=== PATIENT | male | born 1965 | race Caucasian/White ===

== ENCOUNTER → 2023-07-09 07:37 | Outpatient (REF) | payer BC, MEDICARE, SELFPAY ==
[2023-07-09 09:00] LABS: ALT (SGPT) 31 U/L (0-50); AST (SGOT) 33 U/L (17-59); Alkaline Phosphatase 77 U/L (38-126); Blood Urea Nitrogen 15 mg/dl (9-20); Calcium 9.8 mg/dl (8.4-10.2); Carbon Dioxide 31 mmol/L (22-30); Chloride 96 mmol/L (98-107); Glucose 177 mg/dl (70-99); Sodium 134 mmol/L (135-145); Total Bilirubin 0.8 mg/dl (0.2-1.3); Total Protein 6.3 g/dl (6.3-8.2); eGFR > 60.00
== END ==
LOC: REG 07:37
PROVIDERS: ATTENDING PHYSICIAN Internal Medicine Cardiovascular Disease
DX: R06.00 Dyspnea, unspecified (principal)
CPT/HCPCS: 36415; 80053

== ENCOUNTER → 2023-07-12 11:29 | Outpatient (REF) | payer BC, MEDICARE, SELFPAY | LOC: DHCBS MAIN 11:29 | PROVIDERS: ATTENDING PHYSICIAN Internal Medicine Cardiovascular Disease; FAMILY PHYSICIAN Internal Medicine | DX: I10 Essential (primary) hypertension (principal) | CPT/HCPCS: 93306 ==

== ENCOUNTER → 2023-08-01 10:51 | Outpatient (REF) | payer BC, SELFPAY | LOC: RAD 10:51 | PROVIDERS: ATTENDING PHYSICIAN Surgery Vascular Surgery; FAMILY PHYSICIAN Internal Medicine | DX: I73.9 Peripheral vascular disease, unspecified (principal) | CPT/HCPCS: 93922; 93925 ==

== ENCOUNTER → 2023-08-22 07:40 | Outpatient (REF) | payer BC, SELFPAY ==
[2023-08-22 09:35] LABS: ALT (SGPT) 40 U/L (0-50); AST (SGOT) 28 U/L (17-59); Albumin 4.8 g/dl (3.5-5.0); Alkaline Phosphatase 100 U/L (38-126); Blood Urea Nitrogen 15 mg/dl (9-20); Calcium 10.3 mg/dl (8.4-10.2); Carbon Dioxide 26 mmol/L (22-30); Chloride 100 mmol/L (98-107); Glucose 121 mg/dl (70-99); Potassium 4.3 mmol/L (3.5-5.1); Sodium 135 mmol/L (135-145); Total Bilirubin 0.5 mg/dl (0.2-1.3); Total Protein 7.2 g/dl (6.3-8.2); eGFR > 60.00
[2023-08-22 10:11] LABS: Microalbumin, Random Urine <0.6 mg/dl (0.6-1.7)
[2023-08-22 12:20] LABS: Glycohemoglobin (HgbA1c) 5.9 % (4.0-5.6)
== END ==
LOC: REG 07:40
PROVIDERS: ATTENDING PHYSICIAN Internal Medicine
DX: E11.65 Type 2 diabetes mellitus with hyperglycemia (principal)
CPT/HCPCS: 36415; 80053; 82043; 82570; 83036

== ENCOUNTER → 2023-09-16 08:22 | Outpatient (REF) | payer BC, SELFPAY ==
[2023-09-16 09:44] LABS: % Basophils 0.5 % (0-2); % Eosinophils 1.9 % (0-6); % Immature Granulocytes 1.9 % (0-0.5); % Lymphocytes 42.5 % (20.5-51.1); % Monocytes 9.2 % (1.7-9.3); Absolute Eosinophils 0.1 10^3/uL (0-0.7); Absolute Immature Granulocytes 0.1 10^3/uL (0-0.05); Absolute Lymphocytes 2.7 10^3/uL (1.2-3.4); Absolute Monocytes 0.6 10^3/uL (0.1-0.6); Absolute Neutrophils 2.8 10^3/uL (1.4-6.5); Hematocrit 35.2 % (39.0-52.0); Mean Corp Hgb Conc. 36.9 g/dL (33.0-37.0); Mean Corpuscular Hgb 34.1 pg (27.0-31.0); Mean Corpuscular Volume 92.4 fL (80.0-94.0); Mean Platelet Volume 9.2 fL (7.4-10.4); Nucleated Red Blood Cells % 0 % (-); Platelet Count 162 10^3/uL (130-400); Red Blood Cell Count 3.81 10^6/uL (4.70-6.10); Red Cell Dist. Width 13.9 % (11.5-14.5); White Blood Cell Count 6.4 10^3/uL (4.8-10.8)
[2023-09-16 10:11] LABS: C-Reactive Protein < 5.00 mg/L (0.0-10.00)
[2023-09-16 10:52] LABS: Erythrocyte Sed Rate 9 mm/hour (0-20)
== END ==
LOC: RAD 08:22
PROVIDERS: ATTENDING PHYSICIAN Specialist; FAMILY PHYSICIAN Internal Medicine
DX: Z96.652 Presence of left artificial knee joint (principal); M25.462 Effusion, left knee
CPT/HCPCS: 36415; 78315; 85025; 85652; 86140; A9503

== ENCOUNTER → 2024-01-13 08:00 | Outpatient (REF) | payer BC, SELFPAY | LOC: WOUND 08:00 | PROVIDERS: ATTENDING PHYSICIAN Surgery; FAMILY PHYSICIAN Internal Medicine | DX: L97.822 Non-pressure chronic ulcer of other part of left lower leg with fat layer exposed (principal); I87.2 Venous insufficiency (chronic) (peripheral); E11.65 Type 2 diabetes mellitus with hyperglycemia; M17.31 Unilateral post-traumatic osteoarthritis, right knee; M17.11 Unilateral primary osteoarthritis, right knee; Z96.652 Presence of left artificial knee joint; Z79.4 Long term (current) use of insulin | CPT/HCPCS: 11042; 99203 ==

== ENCOUNTER → 2024-01-20 09:22 | Outpatient (REF) | payer BC, SELFPAY | LOC: WOUND 09:22 | PROVIDERS: ATTENDING PHYSICIAN Surgery; FAMILY PHYSICIAN Internal Medicine | DX: L97.822 Non-pressure chronic ulcer of other part of left lower leg with fat layer exposed (principal); I87.2 Venous insufficiency (chronic) (peripheral); E11.65 Type 2 diabetes mellitus with hyperglycemia; M17.31 Unilateral post-traumatic osteoarthritis, right knee; M17.11 Unilateral primary osteoarthritis, right knee; Z96.652 Presence of left artificial knee joint; Z79.4 Long term (current) use of insulin | CPT/HCPCS: 29580; 99213 ==

== ENCOUNTER → 2024-01-27 11:07 | Outpatient (REF) | payer BC, SELFPAY | LOC: WOUND 11:07 | PROVIDERS: ATTENDING PHYSICIAN Surgery; FAMILY PHYSICIAN Internal Medicine | DX: L97.822 Non-pressure chronic ulcer of other part of left lower leg with fat layer exposed (principal); I87.2 Venous insufficiency (chronic) (peripheral); M17.31 Unilateral post-traumatic osteoarthritis, right knee; M17.11 Unilateral primary osteoarthritis, right knee; Z96.652 Presence of left artificial knee joint; Z79.4 Long term (current) use of insulin | CPT/HCPCS: 99212 ==

== ENCOUNTER 2024-02-25 08:44 | Emergency (ER) | payer BC, SELFPAY ==
[2024-02-25 08:53] VITALS: BP 147/72
[2024-02-25 08:55] VITALS: BP 134/55; BMI 45.1
[2024-02-25] MEDS: ADACEL 0.5 ML IM (09:43)
--- NOTE | 2024-02-25 10:16 | ED.GENMED ---
History of Present Illness
General
Chief Complaint: Skin Surface Trauma
Time Seen by Provider: 02/25/24 08:46
History of Present Illness
History of Present Illness:
58-year-old male presents the emergency department For evaluation of bilateral knee pain and a left lower leg laceration sustained after a fall, he was walking on his patio deck which is under construction when he fell through a board, states it was
approximately 18 inches off the ground. Did not strike his head. He is able to bear weight. 7 cm lack to the left lower leg
Past History
Past History
ED Past Medical History: HTN, IDDM and Other (head injury/TBI)
ED Past Surgical History: Orthopedic and Other (Right orbital plate for fx)
Social History
Tobacco: Non-smoker
Personal:
Living: with family
Employment: Employed
Review of Systems
Review of Systems
Allergies reviewed?: Yes
All Other Systems: ROS reviewed and negative except as documented in HPI and ROS
Phy Exam
Physical Exam
Physical Exam:
GEN: Well appearing, NAD, WDWN
HEENT: Oral mucosa moist, no scleral icterus
Cardiac: Regular rate
Lung: No respiratory distress, no tachypnea
MSK: Moderate swelling of bilateral knees with ecchymosis to the right lateral knee. There is a 7 cm linear laceration transversely across the anterior left lower leg with no tendon exposure
Skin: Good color, no pallor or jaundice, no rashes
Neuro: AO x3, moves all extremities freely
Psych: Calm, cooperative
Course
Orders/Labs/Results
Orders:
Orders
02/25/24 09:30
Tetanus/Diphth/Acelpertussis [Adacel] 0.5 ml IM .ONCE ONE
CR Knee- Right 4 Or More View* Urgent
Comment:
Reason For Exam: fall
CR Leg Tibia/fibula Left 2 Vw Urgent
Comment:
Reason For Exam: fall
02/25/24 10:15
Ketorolac [Toradol] 30 mg IM NOW STA
Vital Signs
Initial and Last Documented VS:
Initial Vital Signs
Temp Pulse BP Pulse Ox
99 F 90 147/72 99
02/25/24 08:53 02/25/24 08:53 02/25/24 08:53 02/25/24 08:53
Last Documented Vital Signs
Temp Pulse BP Pulse Ox
99 F 90 134/55 99
02/25/24 08:55 02/25/24 08:55 02/25/24 08:55 02/25/24 09:06
Procedures
Laceration Closure
Left Lower Leg:
Status of Wound: clean
Size of Wound in cm: 7
Description of Wound Edges: sharp
Preparation: cleaned with saline
Anesthesia: 1% Lidocaine with epi
Type of Closure: single layer closure
Skin Closure Material: other (2-0 silk x 7; 3-0 vicryl x 5)
Number of sutures: 12
MDM/Problems Addressed
MDM/Problems Addressed:
X-rays reviewed by radiology suspicious for fracture of the medial femoral condyle on the left. Patient is recommended to use knee immobilizer and follow-up as an outpatient with Ortho, weightbearing as tolerated
*Critical Care Note
Total Time (30-74mins, 75-104mins- exclusive of procedures): Not Applicable
ED Attending Note
-
Portions of this chart may have been created with voice recognition software.� Occasional wrong word or��sound alike� substitutions may have occurred due to the inherent limitations of voice recognition software.
Discharge Plan
Departure
Patient Disposition: Home (Routine Discharge)
Date of Disposition: 02/25/24
Time of Disposition: 10:16
Patient with high blood pressure during this ER visit?: No
Discharge Problem:
Contusion of knee, right, Laceration of left leg
Instructions: Wound Care (DC)
Prescriptions:
No Action
atorvastatin 40 MG tablet
40 mg PO DAILY
risperidone 4 MG tablet
4 mg PO BID
valsartan 80 MG tablet
80 mg PO DAILY
metformin 1,000 MG tablet
1,000 mg PO BID
divalproex 500 MG tablet extended release 24 hr
1,500 mg PO BID
duloxetine 30 MG capsule,delayed release(DR/EC)
30 mg PO DAILY
duloxetine 30 MG capsule,delayed release(DR/EC)
30 mg PO DAILY
Montelukast Sodium 10 MG Tablet
10 mg PO DAILY
meloxicam 15 MG tablet
15 mg PO DAILY AT 0700
Patient Comments:
for 30days
gabapentin 300 MG capsule
300 mg PO BID
naproxen 500 MG tablet
500 mg PO [id number] PRN (Reason: mod pain)
Referrals:
Arias Graham MD [Family Provider] -
Activity Restrictions/Additional Instructions:
Keep dry for 24 hours
Daily gentle rinsing with soap and water
Keep covered and change bandages daily
Suture removal in 14 days
Interventions
Interventions:
*Risk Screen - Suicide Last Done: 02/25/24 08:55
*General Assessment Last Done: 02/25/24 08:55
*Neglect/Abuse Screening Last Done: 02/25/24 08:55
ED- Fall Risk Assessment Last Done: 02/25/24 09:06
*ED COVID-19 Vaccine History Last Done: 02/25/24 08:55
*Nursing Disposition Last Done: 02/25/24 10:28
ED-Skin Assessment Last Done: 02/25/24 09:06
Discharge Date and Time
Discharge Date/Time: 02/25/24 10:29
Print Language: MALDIVIAN
[2024-02-25] MEDS: TORADOL 30 MG IM (10:25)
== END 2024-02-25 10:29 | disposition home or self-care (01) ==
LOC: EMR 08:44
PROVIDERS: EMERGENCY PHYSICIAN Emergency Medicine; FAMILY PHYSICIAN Internal Medicine
DX: S81.812A Laceration without foreign body, left lower leg, initial encounter (principal); S80.01XA Contusion of right knee, initial encounter; W19.XXXA Unspecified fall, initial encounter; Y93.01 Activity, walking, marching and hiking; Z23 Encounter for immunization; I10 Essential (primary) hypertension; E11.9 Type 2 diabetes mellitus without complications
CPT/HCPCS: 99283; 12002; 90471; 96372; 73564; 73590; 90715

== ENCOUNTER → 2024-02-25 10:32 | Outpatient (REF) | payer BC, SELFPAY | LOC: WOUND 10:32 | PROVIDERS: ATTENDING PHYSICIAN Surgery; FAMILY PHYSICIAN Internal Medicine | DX: I87.311 Chronic venous hypertension (idiopathic) with ulcer of right lower extremity (principal); E11.65 Type 2 diabetes mellitus with hyperglycemia; L97.212 Non-pressure chronic ulcer of right calf with fat layer exposed; I87.2 Venous insufficiency (chronic) (peripheral); Z79.4 Long term (current) use of insulin; M17.31 Unilateral post-traumatic osteoarthritis, right knee; Z96.652 Presence of left artificial knee joint | CPT/HCPCS: 29581; 99213 ==

== ENCOUNTER → 2024-02-28 14:24 | Outpatient (REF) | payer BC, SELFPAY | LOC: WOUND 14:24 | PROVIDERS: ATTENDING PHYSICIAN Surgery; FAMILY PHYSICIAN Internal Medicine | DX: I87.311 Chronic venous hypertension (idiopathic) with ulcer of right lower extremity (principal); L97.212 Non-pressure chronic ulcer of right calf with fat layer exposed; I87.2 Venous insufficiency (chronic) (peripheral); E11.65 Type 2 diabetes mellitus with hyperglycemia; M17.31 Unilateral post-traumatic osteoarthritis, right knee; M17.11 Unilateral primary osteoarthritis, right knee; Z96.652 Presence of left artificial knee joint; Z79.4 Long term (current) use of insulin | CPT/HCPCS: 29580 ==

== ENCOUNTER → 2024-03-02 14:12 | Outpatient (REF) | payer BC, MEDICARE, SELFPAY | LOC: WOUND 14:12 | PROVIDERS: ATTENDING PHYSICIAN Surgery | DX: I87.313 Chronic venous hypertension (idiopathic) with ulcer of bilateral lower extremity (principal); L97.212 Non-pressure chronic ulcer of right calf with fat layer exposed; L97.821 Non-pressure chronic ulcer of other part of left lower leg limited to breakdown of skin; E11.65 Type 2 diabetes mellitus with hyperglycemia; Z79.4 Long term (current) use of insulin; M17.31 Unilateral post-traumatic osteoarthritis, right knee; Z96.652 Presence of left artificial knee joint | CPT/HCPCS: 29580; 99213 ==

== ENCOUNTER → 2024-03-09 10:08 | Outpatient (REF) | payer BC, MEDICARE, SELFPAY | LOC: WOUND 10:08 | PROVIDERS: ATTENDING PHYSICIAN Surgery; FAMILY PHYSICIAN Internal Medicine | DX: I87.313 Chronic venous hypertension (idiopathic) with ulcer of bilateral lower extremity (principal); L97.212 Non-pressure chronic ulcer of right calf with fat layer exposed; L97.821 Non-pressure chronic ulcer of other part of left lower leg limited to breakdown of skin; I87.2 Venous insufficiency (chronic) (peripheral); E11.65 Type 2 diabetes mellitus with hyperglycemia; M17.31 Unilateral post-traumatic osteoarthritis, right knee; M17.11 Unilateral primary osteoarthritis, right knee; Z96.652 Presence of left artificial knee joint; Z79.4 Long term (current) use of insulin | CPT/HCPCS: 29580; 99213 ==

== ENCOUNTER → 2024-03-16 10:46 | Outpatient (REF) | payer BC, MEDICARE, SELFPAY | LOC: WOUND 10:46 | PROVIDERS: ATTENDING PHYSICIAN Surgery; FAMILY PHYSICIAN Internal Medicine | DX: I87.313 Chronic venous hypertension (idiopathic) with ulcer of bilateral lower extremity (principal); L97.212 Non-pressure chronic ulcer of right calf with fat layer exposed; L97.821 Non-pressure chronic ulcer of other part of left lower leg limited to breakdown of skin; I87.2 Venous insufficiency (chronic) (peripheral); M17.31 Unilateral post-traumatic osteoarthritis, right knee; M17.11 Unilateral primary osteoarthritis, right knee; Z96.652 Presence of left artificial knee joint; Z79.4 Long term (current) use of insulin; E11.65 Type 2 diabetes mellitus with hyperglycemia | CPT/HCPCS: 11042 ==

== ENCOUNTER 2024-03-18 12:54 | Emergency (ER) | payer BC, MEDICARE, SELFPAY ==
[2024-03-18 13:00] VITALS: BP 126/59
[2024-03-18 13:03] VITALS: BP 126/59
[2024-03-18 13:10] VITALS: BMI 43.3
[2024-03-18] MEDS: TYLENOL 1000 MG PO (13:14)
[2024-03-18 13:42] LABS: % Basophils 0.5 % (0-2); % Eosinophils 1.4 % (0-6); % Immature Granulocytes 0.8 % (0-0.5); % Lymphocytes 29.8 % (20.5-51.1); % Monocytes 7.9 % (1.7-9.3); % Neutrophils 59.6 % (42.2-75.2); Absolute Eosinophils 0.1 10^3/uL (0-0.7); Absolute Immature Granulocytes 0.1 10^3/uL (0-0.05); Absolute Lymphocytes 2.2 10^3/uL (1.2-3.4); Absolute Monocytes 0.6 10^3/uL (0.1-0.6); Absolute Neutrophils 4.4 10^3/uL (1.4-6.5); Hematocrit 35.2 % (39.0-52.0); Hemoglobin 12.9 g/dL (13.0-18.0); Mean Corp Hgb Conc. 36.6 g/dL (33.0-37.0); Mean Corpuscular Hgb 33.8 pg (27.0-31.0); Mean Corpuscular Volume 92.1 fL (80.0-94.0); Mean Platelet Volume 8.7 fL (7.4-10.4); Nucleated Red Blood Cells % 0 % (-); Platelet Count 204 10^3/uL (130-400); Red Blood Cell Count 3.82 10^6/uL (4.70-6.10); Red Cell Dist. Width 14.9 % (11.5-14.5); White Blood Cell Count 7.4 10^3/uL (4.8-10.8)
[2024-03-18 13:46] LABS: Urine Albumin Negative (Neg - Trace); Urine Bilirubin Negative (Negative); Urine Character Clear (Clear); Urine Color Yellow; Urine Glucose Negative (Negative); Urine Ketone Negative (Negative); Urine Leukocyte Negative (Negative); Urine Nitrite Negative (Negative); Urine Occult Blood Negative (Negative); Urine Urobilinogen Negative (Neg - 1+); Urine pH 6.5 (5.0-9.0)
[2024-03-18 13:54] LABS: Lactic Acid 1.6 mmol/L (0.7-2.0)
[2024-03-18 14:00] VITALS: BP 113/65
[2024-03-18 14:14] LABS: COVID-19 Antigen Negative (Negative)
[2024-03-18 15:21] LABS: ALT (SGPT) 31 U/L (0-50); AST (SGOT) 31 U/L (17-59); Alkaline Phosphatase 91 U/L (38-126); Blood Urea Nitrogen 14 mg/dl (9-20); Calcium 9.7 mg/dl (8.4-10.2); Carbon Dioxide 31 mmol/L (22-30); Chloride 94 mmol/L (98-107); Estimated Creatinine Clearance > 125 ml/min; Glucose 119 mg/dl (70-99); Potassium 4.8 mmol/L (3.5-5.1); Sodium 133 mmol/L (135-145); Total Bilirubin 0.5 mg/dl (0.2-1.3); Total Protein 6.3 g/dl (6.3-8.2); eGFR > 60.00
[2024-03-18 15:28] VITALS: BP 150/74
[2024-03-18 18:11] VITALS: BP 108/57
--- NOTE | 2024-03-18 18:29 | ED.GENMED ---
History of Present Illness
General
Chief Complaint: Fatigue
Time Seen by Provider: 03/18/24 12:57
History of Present Illness
History of Present Illness:
58-year-old male presents to the emergency department for evaluation of shaking chills developing this morning. He reports diffuse body pain as well. Was hypothermic by oral temperature at home but is febrile on arrival to the emergency
department. Of note the patient suffered a laceration to the left anterior lower leg on February 24 that was sutured in this emergency department, also had a periprosthetic fracture of the left knee at that time. He followed with wound care and
reportedly the wound began to develop signs of infection 8 days ago, was started on Augmentin and doxycycline with good improvement in the wound however he notes the left knee has become increasingly painful since that time. He is unable to
ambulate much due to severe right hip arthritis as well as this ongoing left knee pain.
Past History
Past History
ED Past Medical History: HTN, IDDM and Other (head injury/TBI)
ED Past Surgical History: Orthopedic and Other (Right orbital plate for fx)
Social History
Tobacco: Non-smoker
Personal:
Living: with family
Employment: Employed
Review of Systems
Review of Systems
Allergies reviewed?: Yes
All Other Systems: ROS reviewed and negative except as documented in HPI and ROS
Phy Exam
Physical Exam
Physical Exam:
GEN: Well appearing, NAD, WDWN
Eyes: PERRLA, EOMs intact, no scleral icterus
HENT: NCAT, oral mucosa moist, no JVD, no cervical adenopathy.
Lungs: CTAB, no wheezes, rales, rhonchi, normal chest wall excursion
Cardiac: Tachycardic, regular
Abdomen: S, NT
Neuro: AO x 3, no focal deficits to BUE/BLE, normal sensation throughout
MSK: No gross deformity or ecchymosis. Healing laceration to left lower extremity with diffuse erythema extending inferiorly most likely venous stasis dermatitis, scant serous discharge from the wound. Left knee effusion is noted with exquisite
pain on passive range of motion
Skin: No rashes, petechiae. Normal color, no pallor or jaundice.
Psych: Calm, cooperative, proper hygiene
Sepsis
Sepsis Screening
Sepsis Assessment: Sepsis Ruled Out
Sepsis Screen
Sepsis Screen: Sepsis Ruled Out
Date: 03/18/24
Time: 18:49
Course
Orders/Labs/Results
Orders:
Orders
03/18/24 13:08
Acetaminophen [Tylenol] 1,000 mg .ROUTE .STK-MED ONE
Acetaminophen [Tylenol] 1,000 mg PO NOW STA
03/18/24 13:24
COVID-19 Antigen Urgent
Source: Nasal Swab
Complete Blood Count/With Diff Urgent
Lactic Acid Q4H
Comment: CANCEL 2nd LACTIC ACID IF 1st LACTIC ACID IS LESS THAN 2
Urinalysis Reflex To Culture Urgent
Date Specimen was Collected: 03/18/24
Time Specimen was Collected: 13:14
Blood Culture Q30M
JIM Source: Blood/Venous
Specimen Description:
Blood Culture Q30M
JIM Source: Blood/Venous
Specimen Description:
Influenza A+B Rapid Molecular Urgent
JIM Source: Nasal Swab
Specimen Description:
03/18/24 14:29
CR Chest - 2 Views Urgent
Comment:
Reason For Exam: fever
03/18/24 14:39
C-Reactive Protein Urgent
Comment: ADD ON
Comprehensive Metabolic Panel Urgent
03/18/24 15:18
Add On- LAB Urgent
Tests Added?: crp
03/18/24 17:42
Body Fluid Cell Count Urgent
What is the Body Fluid: joint
Date Specimen was Collected: 03/18/24
Time Specimen was Collected: 17:39
Comment: with DIFF
Body Fluid Crystals Urgent
What is the Body Fluid: joint
Date Specimen was Collected: 03/18/24
Time Specimen was Collected: 17:39
Fluid Culture with Gram Stain Urgent
JIM Source: Joint Fluid
Specimen Description:
Date Specimen was Collected: 03/18/24
Time Specimen was Collected: 17:39
Abnormal Lab Results
03/18/24 03/18/24
13:24 14:39
RBC 3.82 L 10^6/uL
(4.70-6.10)
Hgb 12.9 L g/dL
(13.0-18.0)
Hct 35.2 L %
(39.0-52.0)
MCH 33.8 H pg
(27.0-31.0)
RDW 14.9 H %
(11.5-14.5)
Abs Immat Gran (auto) 0.1 H 10^3/uL
(0-0.05)
Immature Gran % 0.8 H %
(0-0.5)
Sodium 133 L mmol/L
(135-145)
Chloride 94 L mmol/L
(98-107)
Carbon Dioxide 31 H mmol/L
(22-30)
Glucose 119 H mg/dl
(70-99)
C-Reactive Protein 19.70 H mg/L
(0.0-10.00)
03/18/24 13:24
03/18/24 14:39
Vital Signs
Initial and Last Documented VS:
Initial Vital Signs
Temp Pulse BP Pulse Ox
101.4 F H 126 126/59 96
03/18/24 13:00 03/18/24 13:00 03/18/24 13:00 03/18/24 13:00
Last Documented Vital Signs
Temp Pulse Resp BP Pulse Ox
98.0 F 94 11 108/57 94
03/18/24 16:59 03/18/24 18:00 03/18/24 18:00 03/18/24 18:11 03/18/24 18:11
Procedures
Incision/Drainage/Joint Aspiration
Left Knee:
Preparation: cleaned with Hibiclens
Type of procedure: aspiration
Nature of site: other (joint, L knee)
How much fluid was obtained?: number in mls (70)
Fluid description: cloudy and blood tinged
Treatment: bandaid applied and other (MICHAEL wrap applied)
Additional information:
Performed under sterile technique w/ US guidance
MDM/Problems Addressed
MDM/Problems Addressed:
Given that close workup showed no evidence for source of fever, I discussed the case with orthopedics and they agree with pursuing knee aspiration given the degree of pain and the sizable effusion. Approximately 70 cc of cloudy yellow fluid was
aspirated, cell count with low white blood cells, no concern for infected prosthetic at this time. Culture will be followed. Patient is suitable for discharge home
*Critical Care Note
Total Time (30-74mins, 75-104mins- exclusive of procedures): Not Applicable
ED Attending Note
-
Portions of this chart may have been created with voice recognition software.� Occasional wrong word or��sound alike� substitutions may have occurred due to the inherent limitations of voice recognition software.
Discharge Plan
Departure
Patient Disposition: Home (Routine Discharge)
Date of Disposition: 03/18/24
Time of Disposition: 18:46
Patient with high blood pressure during this ER visit?: No
Discharge Problem:
Fever
Instructions: Fever, Adult (DC)
Prescriptions:
No Action
atorvastatin 40 MG tablet
40 mg PO DAILY
risperidone 4 MG tablet
4 mg PO BID
valsartan 80 MG tablet
80 mg PO DAILY
metformin 1,000 MG tablet
1,000 mg PO BID
divalproex 500 MG tablet extended release 24 hr
1,500 mg PO BID
duloxetine 30 MG capsule,delayed release(DR/EC)
30 mg PO DAILY
duloxetine 30 MG capsule,delayed release(DR/EC)
30 mg PO DAILY
Montelukast Sodium 10 MG Tablet
10 mg PO DAILY
meloxicam 15 MG tablet
15 mg PO DAILY AT 0700
Patient Comments:
for 30days
gabapentin 300 MG capsule
300 mg PO BID
naproxen 500 MG tablet
500 mg PO [id number] PRN (Reason: mod pain)
Referrals:
Arias Graham MD [Family Provider] -
Interventions
Interventions:
*General Assessment Last Done: 03/18/24 13:11
*Neglect/Abuse Screening Last Done: 03/18/24 13:11
*ED COVID-19 Vaccine History Last Done: 03/18/24 13:11
Discharge Date and Time
Print Language: SYRIAN
[2024-03-18 18:38] LABS: Body Fluid Mononuclear 82.2 %; Body Fluid Polymorphonuclear 17.8 %; Body Fluid WBC 689 /CUMM
[2024-03-18 18:41] LABS: Body Fluid Second Tech EYM
== END 2024-03-18 19:01 | disposition home or self-care (01) ==
LOC: EMR 12:54
PROVIDERS: Physician Assistant; EMERGENCY PHYSICIAN Emergency Medicine; FAMILY PHYSICIAN Internal Medicine
DX: R50.9 Fever, unspecified (principal); M25.462 Effusion, left knee; M16.11 Unilateral primary osteoarthritis, right hip; E11.9 Type 2 diabetes mellitus without complications; I10 Essential (primary) hypertension; Z79.4 Long term (current) use of insulin
CPT/HCPCS: 20610; 99284; 71046; 80053; 81003; 83605; 85025; 86140; 87015; 87040; 87070; 87205; 87502; 87811; 89051; 89060

== ENCOUNTER 2024-03-23 15:36 | Inpatient (IN) | payer BC, MEDICARE, SELFPAY ==
[2024-03-23] VITALS (7 sets, daily range): BP systolic 164–186; BP diastolic 79–102; BMI 42.2; BMI 43.7
[2024-03-23 12:13] LABS: % Eosinophils 1.1 % (0-6); % Immature Granulocytes 1.1 % (0-0.5); % Monocytes 9.2 % (1.7-9.3); % Neutrophils 53.6 % (42.2-75.2); Absolute Basophils 0.1 10^3/uL (0-0.2); Absolute Eosinophils 0.1 10^3/uL (0-0.7); Absolute Immature Granulocytes 0.1 10^3/uL (0-0.05); Absolute Lymphocytes 2.1 10^3/uL (1.2-3.4); Absolute Monocytes 0.6 10^3/uL (0.1-0.6); Absolute Neutrophils 3.3 10^3/uL (1.4-6.5); Hematocrit 35.6 % (39.0-52.0); Hemoglobin 12.7 g/dL (13.0-18.0); Mean Corp Hgb Conc. 35.7 g/dL (33.0-37.0); Mean Corpuscular Hgb 33.1 pg (27.0-31.0); Mean Corpuscular Volume 92.7 fL (80.0-94.0); Mean Platelet Volume 8.9 fL (7.4-10.4); Nucleated Red Blood Cells % 0 % (-); Platelet Count 166 10^3/uL (130-400); Red Blood Cell Count 3.84 10^6/uL (4.70-6.10); Red Cell Dist. Width 14.6 % (11.5-14.5); White Blood Cell Count 6.2 10^3/uL (4.8-10.8)
[2024-03-23 12:25] LABS: Lactic Acid 1.5 mmol/L (0.7-2.0)
--- NOTE | 2024-03-23 12:30 | ED.GENMED ---
History of Present Illness
<Ritchie Greenberg PA-C - Last Filed: 03/23/24 14:29>
General
Chief Complaint: Fever
Source: patient
Exam Limitations: none
Time Seen by Provider: 03/23/24 12:06
History of Present Illness
History of Present Illness:
58-year-old male insulin-dependent diabetic presents in referral from wound care with elevated blood pressure confusion and rigors. Rigors started recently. He has been dealing with a wound on the left leg. He has been getting debridement at the
wound care. He had this done today. He has a prior history of a TBI. No measurable fever. He was here last week for fever workup. Has left knee drained for potential septic arthritis but cultures for this were negative. Patient recently
finished a course of Augmentin and doxycycline. He is accompanied by his who is a nurse here. The shakes and chills are new.
Past History
<Ritchie Greenberg PA-C - Last Filed: 03/23/24 14:29>
Past History
ED Past Medical History: HTN, IDDM and Other (head injury/TBI)
ED Past Surgical History: Orthopedic and Other (Right orbital plate for fx)
Social History
Tobacco: Non-smoker
Personal:
Living: with family
Employment: Employed
Phy Exam
<Ritchie Greenberg PA-C - Last Filed: 03/23/24 14:29>
Physical Exam
Physical Exam:
General: Well-developed male no acute respiratory distress
HEENT normocephalic atraumatic face is symmetric
Heart: Regular rate and rhythm lungs: Clear no wheeze
Skin: Erythema and warmth noted to the left lower leg. This is slightly tender to the touch
Extremities: Pitting edema bilateral lower extremities
Neurologic exam: Alert and oriented to person and place. No facial asymmetry or unilateral deficit
Course
<Ritchie Greenberg PA-C - Last Filed: 03/23/24 14:29>
Orders/Labs/Results
Orders:
Orders
03/23/24 12:04
Complete Blood Count/With Diff Urgent
Comprehensive Metabolic Panel Urgent
Lactic Acid Q4H
Comment: ON ICE, CANCEL 2ND ORDER IF FIRST LACTIC ACID LEVEL <2
03/23/24 12:28
CT Head W/o Iv Contrast Urgent
Comment:
Reason For Exam: confusion
03/23/24 12:53
Urinalysis Reflex To Culture Urgent
Date Specimen was Collected: 03/23/24
Time Specimen was Collected: 12:43
Blood Culture Q30M
JIM Source: Blood/Venous
Specimen Description:
Blood Culture Q30M
JIM Source: Blood/Venous
Specimen Description:
03/23/24 13:45
Hip, Left 2-3 Views [CR Hip - LT w/wo Pel 2-3 Vw*] Urgent
Comment:
Reason For Exam: recent fall, left hip pain
Include a pelvis x-ray?: Yes
03/23/24 14:14
Vancomycin [Vancocin] 2,000 mg 0.9% Sodium Chloride 500 ml [Nss] 500 ml IV NOW
Abnormal Lab Results
03/23/24
12:04
RBC 3.84 L 10^6/uL
(4.70-6.10)
Hgb 12.7 L g/dL
(13.0-18.0)
Hct 35.6 L %
(39.0-52.0)
MCH 33.1 H pg
(27.0-31.0)
RDW 14.6 H %
(11.5-14.5)
Abs Immat Gran (auto) 0.1 H 10^3/uL
(0-0.05)
Immature Gran % 1.1 H %
(0-0.5)
Chloride 93 L mmol/L
(98-107)
Carbon Dioxide 33 H mmol/L
(22-30)
Creatinine 0.6 L mg/dL
(0.7-1.3)
Glucose 115 H mg/dl
(70-99)
03/23/24 12:04
03/23/24 12:04
Vital Signs
Initial and Last Documented VS:
Initial Vital Signs
Temp Pulse Resp BP Pulse Ox
98.8 F 95 18 164/93 96
03/23/24 11:05 03/23/24 11:05 03/23/24 11:05 03/23/24 11:05 03/23/24 11:05
Last Documented Vital Signs
Temp Pulse Resp BP Pulse Ox
98.8 F 90 13 171/79 97
03/23/24 11:05 03/23/24 12:15 03/23/24 12:15 03/23/24 12:00 03/23/24 12:15
<Yaya Thomas, DO - Last Filed: 03/23/24 13:48>
Orders/Labs/Results
Orders:
Orders
03/23/24 12:04
Complete Blood Count/With Diff Urgent
Comprehensive Metabolic Panel Urgent
Lactic Acid Q4H
Comment: ON ICE, CANCEL 2ND ORDER IF FIRST LACTIC ACID LEVEL <2
03/23/24 12:28
CT Head W/o Iv Contrast Urgent
Comment:
Reason For Exam: confusion
03/23/24 12:53
Urinalysis Reflex To Culture Urgent
Date Specimen was Collected: 03/23/24
Time Specimen was Collected: 12:43
Blood Culture Q30M
JIM Source: Blood/Venous
Specimen Description:
Blood Culture Q30M
JIM Source: Blood/Venous
Specimen Description:
03/23/24 13:45
Hip, Left 2-3 Views [CR Hip - LT w/wo Pel 2-3 Vw*] Urgent
Comment:
Reason For Exam: recent fall, left hip pain
Include a pelvis x-ray?: Yes
03/23/24 14:14
Vancomycin [Vancocin] 2,000 mg 0.9% Sodium Chloride 500 ml [Nss] 500 ml IV NOW
Abnormal Lab Results
03/23/24
12:04
RBC 3.84 L 10^6/uL
(4.70-6.10)
Hgb 12.7 L g/dL
(13.0-18.0)
Hct 35.6 L %
(39.0-52.0)
MCH 33.1 H pg
(27.0-31.0)
RDW 14.6 H %
(11.5-14.5)
Abs Immat Gran (auto) 0.1 H 10^3/uL
(0-0.05)
Immature Gran % 1.1 H %
(0-0.5)
Chloride 93 L mmol/L
(98-107)
Carbon Dioxide 33 H mmol/L
(22-30)
Creatinine 0.6 L mg/dL
(0.7-1.3)
Glucose 115 H mg/dl
(70-99)
03/23/24 12:04
03/23/24 12:04
Vital Signs
Initial and Last Documented VS:
Initial Vital Signs
Temp Pulse Resp BP Pulse Ox
98.8 F 95 18 164/93 96
03/23/24 11:05 03/23/24 11:05 03/23/24 11:05 03/23/24 11:05 03/23/24 11:05
Last Documented Vital Signs
Temp Pulse Resp BP Pulse Ox
98.8 F 90 13 171/79 97
03/23/24 11:05 03/23/24 12:15 03/23/24 12:15 03/23/24 12:00 03/23/24 12:15
<Ritchie Greenberg PA-C - Last Filed: 03/23/24 14:29>
MDM/Problems Addressed
Differential Diagnosis Includes:
Sent in by wound care for evaluation of rigors confusion. Concern for possible underlying infectious process. Cellulitis, UTI. Was here last week had his left knee drained and fluid culture from his left knee was negative. No sign of septic
arthritis of the knee during today's exam. Labs and CT pending. Discussed with emergency room
<Ritchie Greenberg PA-C - Last Filed: 03/23/24 14:29>
*Critical Care Note
Total Time (30-74mins, 75-104mins- exclusive of procedures): Not Applicable
<Ritchie Greenberg PA-C - Last Filed: 03/23/24 14:29>
Update Note
Update Note:
CT head shows no acute finding. Discussed with emergency room attending. Concern for possible cellulitis of left leg. And diabetic recently finished course of antibiotics now with rigors and chills. also states that he has been
intermittently confused. Concern for possible TIAs as well. Will mid to hospital. Vancomycin ordered.
ED Attending Note
<Ritchie Greenberg PA-C - Last Filed: 03/23/24 14:29>
-
Portions of this chart may have been created with voice recognition software.� Occasional wrong word or��sound alike� substitutions may have occurred due to the inherent limitations of voice recognition software.
<Yaya Thomas DO - Last Filed: 03/23/24 13:48>
ED Attending Note
Patient seen and examined by attending physician: Yes
I performed the substantive portion of visit, reviewed & personally made and approve the management plan that is documented in note by myself or CALLIE.: Yes
ED Attending Note:
I have seen and evaluated the patient with a [id number] encounter. I have spoken to the advance practicer provider and involved in the medical history, the physical exam, medical decision making.
Evaluation and management service: agree unless noted differently below.
Results interpretation: agree unless noted differently below.
Focused HPI: 58-year-old male presenting from wound care for evaluation of altered mental status and rigors. Patient is being treated for a left leg infection. He recently finished antibiotics. Patient and family actually think that the legs are
doing better but there is still mild erythema. No discharge. Patient states that he has been developing intermittent rigors at home and has been developing episodes of confusion
Physical exam: Sitting in bed comfortably. Abrasions to left leg with surrounding cellulitis. No obvious focal neurodeficits
Medical Decision Making: Given intermittent confusion, CT head was performed which is negative. Will admit for TIA workup. Given the rigors, will restart antibiotics
Discharge Plan
Departure
Patient Disposition: Admit
Date of Disposition: 03/23/24
Time of Disposition: 14:27
Admit to: Telemetry
Presentation/result/management discussed w/ accepting MD/DO: Hospitalist
Discharge Problem:
Brain TIA, Cellulitis
Prescriptions:
No Action
atorvastatin 40 MG tablet
40 mg PO QPM
risperidone 4 MG tablet
4 mg PO BID
valsartan 80 MG tablet
80 mg PO DAILY
metformin 1,000 MG tablet
1,000 mg PO BID
montelukast [Singulair] 10 mg Tablet
10 mg PO QPM
duloxetine 30 MG capsule,delayed release(DR/EC)
90 mg PO DAILY
gabapentin 300 MG capsule
300 mg PO BID
naproxen 500 MG tablet
500 mg PO [id number] PRN (Reason: moderate pain)
divalproex 500 mg Tablet,Delayed Release (Dr/Ec)
1,500 mg PO BID
oxycodone 15 mg Tablet
15 mg PO Q6HPRN PRN (Reason: severe pain)
alprazolam [Xanax] 0.5 mg Tablet
0.5 mg PO BIDPRN PRN (Reason: anxiety)
furosemide [Lasix] 80 mg Tablet
80 mg PO DAILY
insulin lispro 100 unit/mL Insulin Pen
30 unit SC AC
eplerenone 25 mg Tablet
25 mg PO DAILY
insulin degludec [Tresiba FlexTouch U-200] 200 unit/mL (3 mL) Insulin Pen
60 unit SC HS
Mounjaro 5 mg/0.5 mL Pen Injector
5 mg SC MO
Interventions
Interventions:
*Risk Screen - Suicide Last Done: 03/23/24 12:24
*General Assessment Last Done: 03/23/24 12:24
*Neglect/Abuse Screening Last Done: 03/23/24 12:24
ED- Neurological Assessment Last Done: 03/23/24 12:24
ED-Skin Assessment Last Done: 03/23/24 12:24
Discharge Date and Time
Print Language: AZERI
[2024-03-23 12:32] LABS: ALT (SGPT) 32 U/L (0-50); AST (SGOT) 34 U/L (17-59); Albumin 4.1 g/dl (3.5-5.0); Alkaline Phosphatase 81 U/L (38-126); Blood Urea Nitrogen 12 mg/dl (9-20); Calcium 9.7 mg/dl (8.4-10.2); Carbon Dioxide 33 mmol/L (22-30); Chloride 93 mmol/L (98-107); Estimated Creatinine Clearance > 125 ml/min; Glucose 115 mg/dl (70-99); Potassium 4.5 mmol/L (3.5-5.1); Sodium 135 mmol/L (135-145); Total Bilirubin 0.7 mg/dl (0.2-1.3); Total Protein 6.4 g/dl (6.3-8.2); eGFR > 60.00
[2024-03-23 13:21] LABS: Urine Albumin Negative (Neg - Trace); Urine Bilirubin Negative (Negative); Urine Character Clear (Clear); Urine Color Yellow; Urine Glucose Negative (Negative); Urine Ketone Negative (Negative); Urine Leukocyte Negative (Negative); Urine Nitrite Negative (Negative); Urine Occult Blood Negative (Negative); Urine Urobilinogen Negative (Neg - 1+)
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
[2024-03-23] MEDS: VANCOCIN 540 MG IV (15:02)
--- NOTE | 2024-03-23 15:23 | W.PN.UPDATE ---
Update Note
Progress Note Update
This is an addendum to the H&P written by Claire Maya on 03/23/2024. Patient seen and examined independently with SOUND RECORDIST.
58-year-old male past medical history of left calf wound, diabetes, diabetic neuropathy,hypertension, CHF, anxiety, hyperlipidemia presenting with intermittent rigors and confusion and worsening of left calf wound despite treatment with
Augmentin/doxycycline over the past 10 days. He has been seeing wound care and had been getting debridements most recently today.
He was here last week for fever. He had left knee swelling and there was concern for potential septic arthritis but fluid culture was negative. At that time he had x-ray of the left tibia/fibula cortical disruption along the superior aspect of the
right medial femoral condyle associated suprapatellar joint effusion concerning for acute nondisplaced fracture. He was following with Ortho who recommended immobilizer.
Patient is hypertensive at this time with systolic blood pressure 170s likely secondary to pain. The wound appears superficial with some surrounding erythema. The left knee appears swollen but there is no tenderness or warmth to suggest septic
arthritis.
Urinalysis unremarkable. CT head unremarkable. Patient appears to have metabolic encephalopathy likely from the wound and cellulitis. Check blood cultures. Will start vancomycin. ID consulted.
Reduce insulin levels as per SOUND RECORDIST.
[2024-03-23] MEDS: ROXICODONE 15 MG PO ×2 (16:24→22:35)
[2024-03-23] MEDS: GLUCOPHAGE 1000 MG PO (16:25)
--- NOTE | 2024-03-23 16:45 | PHA.VAN.IN ---
Assessment
- Assessment
Renal Function: Appears similar to baseline
Concomitant Antimicrobials: NONE
- Previous Dosing Experience
Previous Regimen: SINGLE DOSE ONLY 1GM
AUC Dosing Plan
- Dosing Variables
Dosing Weight (kg): 150.2
Dosing CrCl (ml/min): 100
Vd coefficient (L/kg): 0.5
- Empiric Dosing
Initial / Loading Dose: 2GM
Maintenance Regimen: 1750MG IV Q12H
Estimated AUC (mcg*h/mL): 580
Estimated Peak (mcg*h/mL): 35.9
Estimated Trough (mcg/ml): 15
Estimated Half Life (H): 7.9
Pharmacokinetics Vancomycin I
- -
Patient Age: 58
Patient Sex: Male
Vancomycin Day #: 1
Indication: Skin And Soft Tissue (LLE CELLULITIS; SEPSIS)
Requesting Provider: SUKHWINDER
Height / Weight:
Height 6 ft 1 in
Actual Weight 150.184 kg
Pertinent Past Medical History: DM; FAILED OUTPT TX WITH AUGMENTIN, DOXYCYCLINE
- Vital Signs / Lab Results
Temp Pulse Resp BP Pulse Ox
98.6 F 107 16 186/102 98
03/23/24 16:04 03/23/24 16:04 03/23/24 16:04 03/23/24 16:04 03/23/24 16:04
Lab Results - Hematology
03/23/24
12:04
WBC 6.2
Lab Results - Chemistry
03/23/24
12:04
BUN 12
Creatinine 0.6 L
Estimated Creat Clear > 125
Albumin 4.1
03/23/24 03/23/24
12:04 16:15
Lactic Acid 1.5 Cancelled
Lab Results - Urine
03/23/24
12:53
Urine Nitrite (Reflex) Negative
Leukocyte Esterase Rfl Negative
[2024-03-23 16:58] LABS: Glucose - Point of Care 154 mg/dl (70-99)
--- NOTE | 2024-03-23 16:59 | PTCARENOTE ---
Pt arrived from ED, ambulated from stretcher to bed with assist of 1 person and rolling walker. AAOx3, speech is garbled/slow, pupils both 2mm and sluggish, BP running high - likely due to 10/10 pain to left side of body per MD, COLLEEN kiran
administered. Call mott within reach, vancomycin infusing, pt resting comfortably in bed with at bedside at this time.
[2024-03-23] MEDS: NOVOLOG FLEXPEN 20 UNITS SC (17:24)
[2024-03-23] MEDS: NOVOLOG FLEXPEN-LOW RESISTANCE 1 UNITS SC (17:25)
[2024-03-23] MEDS: LIPITOR 40 MG PO (17:25)
[2024-03-23] MEDS: LOVENOX 40 MG SC (17:27)
[2024-03-23] MEDS: SINGULAIR 10 MG PO (17:29)
[2024-03-23] MEDS: NEURONTIN 300 MG PO (19:57)
[2024-03-23] MEDS: DEPAKOTE (12 HR RELEASE) 1500 MG PO (19:57)
[2024-03-23] MEDS: RISPERDAL 4 MG PO (19:58)
[2024-03-23] MEDS: XANAX 0.5 MG PO (20:29)
[2024-03-23 21:57] LABS: Glucose - Point of Care 101 mg/dl (70-99)
--- NOTE | 2024-03-23 23:00 | PTCARENOTE ---
Pt's blood sugar 101 at HS, scheduled to receive 40 units of lantus. 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
[2024-03-23] MEDS: LANTUS 0.2 UNITS SC (23:52)
[2024-03-24] MEDS: LOPRESSOR 5 MG IV (03:01)
--- NOTE | 2024-03-24 03:22 | PTCARENOTE ---
Pt with bp 170/80's, HR 100 since start of shift, asymptomatic. Pain med for pain 02/12 to LE and xanax given for anxiety, bp unchanged (see MAR for VS). 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 Will continue to monitor.
[2024-03-24 03:47] LABS: Glucose - Point of Care 109 mg/dl (70-99)
[2024-03-24 03:48] VITALS: BP 175/82
[2024-03-24 06:00] VITALS: BMI 43.0
[2024-03-24] MEDS: VANCOCIN 535 MG IV ×2 (06:00→17:31)
[2024-03-24] MEDS: ROXICODONE 15 MG PO ×2 (06:01→20:36)
[2024-03-24 06:08] LABS: Hematocrit 36.8 % (39.0-52.0); Hemoglobin 13.1 g/dL (13.0-18.0); Mean Corp Hgb Conc. 35.6 g/dL (33.0-37.0); Mean Corpuscular Hgb 33.2 pg (27.0-31.0); Mean Corpuscular Volume 93.2 fL (80.0-94.0); Mean Platelet Volume 8.9 fL (7.4-10.4); Platelet Count 172 10^3/uL (130-400); Red Blood Cell Count 3.95 10^6/uL (4.70-6.10); Red Cell Dist. Width 14.9 % (11.5-14.5); White Blood Cell Count 5.4 10^3/uL (4.8-10.8)
[2024-03-24 06:17] LABS: Blood Urea Nitrogen 9 mg/dl (9-20); Calcium 9.6 mg/dl (8.4-10.2); Carbon Dioxide 28 mmol/L (22-30); Chloride 102 mmol/L (98-107); Estimated Creatinine Clearance > 125 ml/min; Glucose 108 mg/dl (70-99); Potassium 4.4 mmol/L (3.5-5.1); Sodium 142 mmol/L (135-145); eGFR > 60.00
[2024-03-24] MEDS: DIOVAN 80 MG PO (06:28)
[2024-03-24] MEDS: LASIX 80 MG PO (06:29)
--- NOTE | 2024-03-24 07:26 | PTCARENOTE ---
BP remains high, pt asymptomatic. Lasix 80 mg and valsartan 80mg albaro for 0800 given at 0630 as per ENGLISH [employer]ER.
[2024-03-24 07:48] LABS: Glucose - Point of Care 111 mg/dl (70-99)
--- NOTE | 2024-03-24 07:49 | PHA.VAN.FU ---
Vancomycin Assessment / Plan
- Assessment
Renal Function: Stable
WBC's are: WNL
In the past 24 hrs, patient has been: Afebrile
- Dosing Plan
Continue: Vanc 1750mg Q12H
- Monitoring Plan
No level(s) ordered at this time: consider levels in next few days
Monitoring Comments: patient may be slower to reach equilibrium with BMI 43
- Follow Up
Pharmacy will continue to follow.
Vancomycin Follow UP
- -
Patient Age: 58
Patient Sex: Male
Vancomycin Day #: 2
Indication: Skin And Soft Tissue
Requesting Provider: Lesley Maya
Pertinent Antimicrobial Allergies:
NKDA
Height / Weight:
Height 6 ft 1 in
Actual Weight 147.962 kg
Pertinent Past Medical History: BMI ~43, DM 2
- Vital Signs / Lab Results
Temp Pulse Resp BP Pulse Ox
98.4 F 94 18 172/84 96
03/23/24 23:30 03/24/24 06:28 03/23/24 23:30 03/24/24 06:28 03/23/24 23:30
Lab Results - Hematology
03/23/24 03/24/24
12:04 05:42
WBC 6.2 5.4
Lab Results - Chemistry
03/23/24 03/24/24
12:04 05:42
BUN 12 9
Creatinine 0.6 L 0.6 L
Estimated Creat Clear > 125 > 125
Albumin 4.1
03/23/24 03/23/24
12:04 16:15
Lactic Acid 1.5 Cancelled
Lab Results - Urine
03/23/24
12:53
Urine Nitrite (Reflex) Negative
Leukocyte Esterase Rfl Negative
[2024-03-24] MEDS: NOVOLOG FLEXPEN-LOW RESISTANCE SC ×3 (07:53→17:13)
[2024-03-24] MEDS: NOVOLOG FLEXPEN 20 UNITS SC ×3 (07:55→17:14)
[2024-03-24] MEDS: CYMBALTA DELAYED RELEASE 90 MG PO (07:56)
[2024-03-24] MEDS: RISPERDAL 4 MG PO ×2 (07:56→20:35)
[2024-03-24] MEDS: NEURONTIN 300 MG PO ×2 (07:56→20:34)
[2024-03-24] MEDS: INSPRA 25 MG PO (07:56)
[2024-03-24] MEDS: DEPAKOTE (12 HR RELEASE) 1500 MG PO ×2 (07:57→20:34)
[2024-03-24] MEDS: GLUCOPHAGE 1000 MG PO (07:57)
[2024-03-24 08:08] VITALS: BP 177/91
[2024-03-24 08:38] LABS: Glycohemoglobin (HgbA1c) 5.4 % (4.0-5.6)
[2024-03-24 09:31] VITALS: BP 192/98
[2024-03-24] MEDS: APRESOLINE 5 MG IV (09:40)
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
--- NOTE | 2024-03-24 11:19 | CM ---
Patient seen at bedside.
IA completed
DX: L LE cellulitis - going to [facility]
States he was performing his wound care
PMH: IDDM, HTN, CHF, neuropathy, anxiety, HDL, knee replacement
Lives in a 2 story home with & children
PLOF: Ambulates with walker
DME: walker
Denies housing/transportation/utilities/food insecurities
currently no needs anticipated
PCP: Arias Graham
Pharmacy: [facility]
PLAN: Home, no needs anticipated, CM to follow
[2024-03-24 11:37] LABS: Glucose - Point of Care 104 mg/dl (70-99)
[2024-03-24 11:40] VITALS: BP 157/88
--- NOTE | 2024-03-24 11:52 | PTCARENOTE ---
BP this AM was 177/91, HR 96. Pain 10/10, PRN pain medication administered along with AM BP meds. BP rechecked at 192/88, HR 99. PRN hydralazine 5mg administered, BP rechecked at 157/88, HR 96. Pt resting comfortably in bed at this time.
--- NOTE | 2024-03-24 11:52 | W.PN.HOSP.TC ---
Today's Communication/Plan
-
Monitor vital signs see plan
Check MRI brain
Continue with antibiotics
Follow cultures
Monitor mentation closely with pain medication and anxiolytics
Check lower extremity ultrasound
Assessment / Plan
Assessment / Plan
General: Well Developed, Well Nourished and No Apparent Distress
HEENT: NormoCephalic, Moist mucous membranes and Atraumatic
Respiratory: Clear
Cardiac: S1/S2 and Regular Rhythm; No Murmur or Rub
GI: Soft, Non Tender, Non Distended and Normal Bowel Sounds
Musculoskeletal: Edema
Skin: Other (left LE redness, swelling and wound)
Neuro: AO x 3 and Nonfocal/grossly intact
Psych: Calm
Confusion suspect Metabolic encephalopathy likely from left leg wound/cellulitis
given hx of HTN and diabetes; would check MRI brain
monitor mentation with his pain meds and anxiolytics
-CT head negative
-IV Vanco continued
-Blood culture sent from ER pending
-Tylenol as needed for fever and pain
-Wound care consulted
-Oxy and naproxen continued
-ID following
check LE US
# Type 2 diabetes
-Tresiba 40 at bedtime
-Lispro 20 units before meals
-Metformin hold
-CHO diet
-Hold Mounjaro
# Hypertension
appears uncontrolled
add hydralazine prn
-Valsartan continued
# Anxiety
-Xanax, Depakote, duloxetine continued
-Risperidone continued
# History of congestive heart failure
-Patient not in acute exacerbation
-Eplerenone, Lasix continued
-Strict BEATRIZ, daily weight
-Follows Dr. Kevin Lizarraga as an outpatient
# Peripheral artery disease/neuropathy
-Gabapentin continued
# DVT prophylaxis
-Lovenox subcu
# CODE STATUS
-Full code
I spent a total of 52 minutes with the patient or on the floor. More than 50% of this time involved counseling and coordination of care.
Anticipated Discharge: > 48 hours
Subjective/Interval History
-
Date of Service: March 24, 2024
denies pain
Objective Data
-
Labs:
Laboratory Results
03/24/24
05:42
WBC 5.4
Hgb 13.1
Hct 36.8 L
Plt Count 172
Sodium 142
Potassium 4.4
Chloride 102
Carbon Dioxide 28
BUN 9
Creatinine 0.6 L
Glucose 108 H
Calcium 9.6
Vital Signs:
Vital Signs
Temp Pulse Resp BP Pulse Ox
97.9 F 96 17 157/88 96
03/24/24 08:08 03/24/24 11:40 03/24/24 08:08 03/24/24 11:40 03/24/24 11:22
I&O
03/23/24 03/24/24 03/25/24
06:59 06:59 06:59
Intake Total 735 / 735 1230 / 1230
Output Total 1000 / 1000
Balance 735 / 735 230 / 230
--- NOTE | 2024-03-24 12:05 | WOUNDNOTE ---
L LEG, PICTURE TAKEN BY NURSE
--- NOTE | 2024-03-24 12:06 | WOUNDNOTE ---
NADIRA RN NOTE: Patient admitted with cellulitis and metabolic encephalopathy. PMH L leg wound, sees Dr. Ulloa at wound center. IDDM, traumatic brain injury, HTN,NM, back pain and difficulty with balance. Nurse Mina showed this television writer picture of
wound, appears much ware cleaner compared to last picture viewed from wound care center report. Patient is on a [facility] air bed with turning schedule. Gadiel wraps knee high both legs in use. Patient states he uses a topical antibiotic cream but does
not recall what it is called. also does not recall. Discussed the above with Dr. Ulloa who confirmed ok to order mupirocin and dry dressing for L leg with gadiel wraps both legs knee high. Will update wound care orders, confirm with hospitalist
and nurse Mina aware of the above. Updated care plan and will follow as needed.
[2024-03-24] MEDS: BACTROBAN 2% OINTMENT 1 APPLIC TOPICAL (12:26)
[2024-03-24] MEDS: XANAX 0.5 MG PO (14:39)
[2024-03-24 16:32] VITALS: BP 149/80
[2024-03-24 17:09] LABS: Glucose - Point of Care 133 mg/dl (70-99)
[2024-03-24] MEDS: SINGULAIR 10 MG PO (17:12)
[2024-03-24] MEDS: LIPITOR 40 MG PO (17:13)
[2024-03-24] MEDS: LOVENOX 40 MG SC (17:14)
[2024-03-24 21:51] LABS: Glucose - Point of Care 158 mg/dl (70-99)
[2024-03-24] MEDS: LANTUS 0.3 UNITS SC (22:35)
[2024-03-24 23:28] VITALS: BP 152/67
[2024-03-25] MEDS: VANCOCIN 535 MG IV (05:34)
[2024-03-25 05:42] VITALS: BMI 42.9
[2024-03-25 05:42] LABS: Glucose - Point of Care 157 mg/dl (70-99)
[2024-03-25 07:03] LABS: % Basophils 0.7 % (0-2); % Eosinophils 2.4 % (0-6); % Lymphocytes 36.8 % (20.5-51.1); % Monocytes 9.3 % (1.7-9.3); % Neutrophils 49.8 % (42.2-75.2); Absolute Eosinophils 0.1 10^3/uL (0-0.7); Absolute Immature Granulocytes 0.1 10^3/uL (0-0.05); Absolute Lymphocytes 2.1 10^3/uL (1.2-3.4); Absolute Monocytes 0.5 10^3/uL (0.1-0.6); Absolute Neutrophils 2.9 10^3/uL (1.4-6.5); Hematocrit 35.8 % (39.0-52.0); Mean Corp Hgb Conc. 36.3 g/dL (33.0-37.0); Mean Corpuscular Hgb 33.6 pg (27.0-31.0); Mean Corpuscular Volume 92.5 fL (80.0-94.0); Mean Platelet Volume 9.1 fL (7.4-10.4); Nucleated Red Blood Cells % 0 % (-); Platelet Count 158 10^3/uL (130-400); Red Blood Cell Count 3.87 10^6/uL (4.70-6.10); Red Cell Dist. Width 14.6 % (11.5-14.5); White Blood Cell Count 5.8 10^3/uL (4.8-10.8)
[2024-03-25 07:55] LABS: Blood Urea Nitrogen 10 mg/dl (9-20); Calcium 9.2 mg/dl (8.4-10.2); Carbon Dioxide 26 mmol/L (22-30); Chloride 103 mmol/L (98-107); Estimated Creatinine Clearance > 125 ml/min; Glucose 128 mg/dl (70-99); Potassium 4.2 mmol/L (3.5-5.1); Sodium 141 mmol/L (135-145); eGFR > 60.00
[2024-03-25 08:00] VITALS: BP 154/91
--- NOTE | 2024-03-25 08:32 | PHA.VAN.FU ---
Vancomycin Assessment / Plan
- Assessment
Renal Function: Stable
WBC's are: WNL
In the past 24 hrs, patient has been: Afebrile
- Dosing Plan
Continue: Vanc 1750mg Q12H
- Monitoring Plan
No level(s) ordered at this time: consider levels in next few days
Monitoring Comments: patient may be slower to reach equilibrium with BMI 43
- Follow Up
Pharmacy will continue to follow.
Vancomycin Follow UP
- -
Patient Age: 58
Patient Sex: Male
Vancomycin Day #: 3
Indication: Skin And Soft Tissue
Requesting Provider: Lesley Maya / Dr. Freeman
Pertinent Antimicrobial Allergies:
NKDA
Height / Weight:
Height 6 ft 1 in
Actual Weight 147.508 kg
Pertinent Past Medical History: BMI ~43, DM 2
- Vital Signs / Lab Results
Temp Pulse Resp BP Pulse Ox
98.2 F 90 20 152/67 94
03/24/24 23:28 03/24/24 23:28 03/24/24 23:28 03/24/24 23:28 03/24/24 23:28
Lab Results - Hematology
03/23/24 03/24/24 03/25/24
12:04 05:42 06:02
WBC 6.2 5.4 5.8
Lab Results - Chemistry
03/23/24 03/24/24 03/25/24
12:04 05:42 06:02
BUN 12 9 10
Creatinine 0.6 L 0.6 L 0.5 L
Estimated Creat Clear > 125 > 125 > 125
Albumin 4.1
03/23/24 03/23/24
12:04 16:15
Lactic Acid 1.5 Cancelled
Microbiology Results
03/23/24 12:53 Blood Culture - Preliminary
Blood/Venous No Growth in 24 hours- Final report to follow
03/23/24 12:53 Blood Culture - Preliminary
Blood/Venous No Growth in 24 hours- Final report to follow
[2024-03-25] MEDS: NOVOLOG FLEXPEN 20 UNITS SC ×2 (09:19→13:03)
[2024-03-25] MEDS: NOVOLOG FLEXPEN-LOW RESISTANCE 1 UNITS SC (09:20)
[2024-03-25] MEDS: INSPRA 25 MG PO ×2 (09:21→13:03)
[2024-03-25] MEDS: LASIX 80 MG PO (09:21)
[2024-03-25] MEDS: DIOVAN 80 MG PO (09:21)
[2024-03-25] MEDS: CYMBALTA DELAYED RELEASE 90 MG PO (09:21)
[2024-03-25] MEDS: RISPERDAL 4 MG PO (09:22)
[2024-03-25] MEDS: DEPAKOTE (12 HR RELEASE) 1500 MG PO (09:22)
[2024-03-25] MEDS: NEURONTIN 300 MG PO (09:22)
[2024-03-25] MEDS: BACTROBAN 2% OINTMENT 1 APPLIC TOPICAL (09:22)
--- NOTE | 2024-03-25 10:12 | WOUNDNOTE ---
LEFT LOWER ANTERIOR LEG
--- NOTE | 2024-03-25 10:14 | WOUNDNOTE ---
BILATERAL LOWER LEGS
--- NOTE | 2024-03-25 10:15 | WOUNDNOTE ---
WON RN NOTE: Followed today, received in recliner chair with legs elevated. legs with chronic redness and L leg ulcer with healing pink base. Heels are intact, + palpable pedal pulses. Has own compression stockings at bedside. Dressing changed and
will notify nurse to apply compression stockings when back to bed, unless can apply later. Will update orders and follow as needed.
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
[2024-03-25 11:45] LABS: Glucose - Point of Care 100 mg/dl (70-99)
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
--- NOTE | 2024-03-25 12:41 | W.DCSUMMARY ---
Discharge Summary
Discharge Data
Date of Admission: 03/23/24
Date of Discharge: 03/25/24
-
Pending Results: No
Hospital Course
58-year-old male with past medical history of morbid obesity, total knee replacement with traumatic periprosthetic fracture, venous stasis, chronic low back pain, depression/anxiety, traumatic brain injury, neuropathy, benign mass excised from right
thigh, type 2 diabetes mellitus, hypertension, CHF, sleep apnea, peripheral artery disease came to the hospital with rigors and confusion from wound care clinic. Initially patient was admitted for possible left leg wound/cellulitis. Patient was
seen by infectious disease throughout hospitalization. Initially he was on IV antibiotic which was later discontinued since patient was afebrile throughout hospitalization and had no leukocytosis. Infectious disease did not thought patient
symptoms are secondary to cellulitis. Lower extremity ultrasound was also done which was negative for DVT. Given his confusion, we checked MRI which was negative for any acute CVA. Patient blood pressure continues to be elevated so his eplerenone
was increased. He was instructed to get repeat BMP outpatient to monitor his creatinine and potassium. He also appeared noncompliant with his CPAP which he uses for sleep apnea. He was instructed to follow-up with pulmonary outpatient and to
remain compliant with his CPAP.
Discharge Plan
-
Patient Disposition: Home (Routine Discharge)
Discharge Diagnosis/Procedures: Rigors
venous insufficiency
HTN
LE wound
Diet: As tolerated
Activity: As tolerated
Driving Restrictions: As prior to admission
Bathing Restrictions: None
Blood Work: CBC and BMP next week with PCP
Activity Restrictions/Additional Instructions:
Wound Care Instructions
L leg: clean with soap and water, apply topical mupirocin, then dry dressing daily.
Gadiel wraps both legs knee high daily can remove at bedtime
Follow up at wound care center call for an appointment.
If persistent fever then return to the hospital for evaluation. Please follow-up with orthopedics outpatient
Referrals:
Carlin Oleary MD [Active] -
Arias Graham MD [Family Provider] - in less than 1 week
Kevin Lizarraga MD [Active] -
Patti Freeman MD [Active] -
Prescriptions:
New
mupirocin 2 % Ointment
1 applic topical DAILY Qty: 22 0RF
Continued
atorvastatin 40 MG tablet
40 mg PO QPM
risperidone 4 MG tablet
4 mg PO BID
valsartan 80 MG tablet
80 mg PO DAILY
metformin 1,000 MG tablet
1,000 mg PO BID
montelukast [Singulair] 10 mg Tablet
10 mg PO QPM
duloxetine 30 MG capsule,delayed release(DR/EC)
90 mg PO DAILY
gabapentin 300 MG capsule
300 mg PO BID
naproxen 500 MG tablet
500 mg PO [id number] PRN (Reason: moderate pain)
divalproex 500 mg Tablet,Delayed Release (Dr/Ec)
1,500 mg PO BID
oxycodone 15 mg Tablet
15 mg PO Q6HPRN PRN (Reason: severe pain)
alprazolam [Xanax] 0.5 mg Tablet
0.5 mg PO BIDPRN PRN (Reason: anxiety)
furosemide [Lasix] 80 mg Tablet
80 mg PO DAILY
insulin lispro 100 unit/mL Insulin Pen
30 unit SC AC
Mounjaro 5 mg/0.5 mL Pen Injector
5 mg SC MO
Changed
eplerenone 25 mg Tablet
50 mg PO DAILY Qty: 0 0RF
insulin degludec [Tresiba FlexTouch U-200] 200 unit/mL (3 mL) Insulin Pen
40 unit SC HS Qty: 0 0RF
Discharge Orders:
Discharge Patient (As Directed); Ordered 03/25/24
Ordered By: Eric Faria
Discharge Date and Time
Discharge Date/Time: 03/25/24 14:15
Print Language: TAJIK
[2024-03-25] MEDS: NOVOLOG FLEXPEN-LOW RESISTANCE SC (13:04)
--- NOTE | 2024-03-25 13:38 | CM ---
Patient seen at bedside.
Discharge to home today
[facility]
Declines VN
PLAN: home, family to transport
[2024-03-25 13:55] VITALS: BP 125/88
== END 2024-03-25 14:15 | disposition home or self-care (01) | DRG 947 ==
LOC: 2 NORTH 15:36
PROVIDERS: Physician Assistant; Registered Nurse; ADMITTING PHYSICIAN Hospitalist; ATTENDING PHYSICIAN Internal Medicine; EMERGENCY PHYSICIAN Student in an Organized Health Care Education/Training Program; FAMILY PHYSICIAN Internal Medicine; OTHER PHYSICIAN Internal Medicine Infectious Disease
DX: R68.89 Other general symptoms and signs (principal); G93.41 Metabolic encephalopathy; Z68.41 Body mass index [BMI] 40.0-44.9, adult; G47.30 Sleep apnea, unspecified; E11.40 Type 2 diabetes mellitus with diabetic neuropathy, unspecified; E78.5 Hyperlipidemia, unspecified; I11.0 Hypertensive heart disease with heart failure; I50.9 Heart failure, unspecified; I87.2 Venous insufficiency (chronic) (peripheral); I87.8 Other specified disorders of veins; E11.51 Type 2 diabetes mellitus with diabetic peripheral angiopathy without gangrene; F41.9 Anxiety disorder, unspecified; F32.A Depression, unspecified; S81.812A Laceration without foreign body, left lower leg, initial encounter; E66.01 Morbid (severe) obesity due to excess calories; E66.813 Obesity, class 3; X58.XXXA Exposure to other specified factors, initial encounter; Z91.199 Patient's noncompliance with other medical treatment and regimen due to unspecified reason; Z96.652 Presence of left artificial knee joint; Z87.820 Personal history of traumatic brain injury; Z79.84 Long term (current) use of oral hypoglycemic drugs; Z79.4 Long term (current) use of insulin
CPT/HCPCS: 11042; 70450; 70551; 73502; 80048; 80053; 81003; 82962; 83036; 83605; 85025; 85027; 87040; 93970; 99213; 99285

== ENCOUNTER → 2024-04-07 10:43 | Outpatient (REF) | payer BC, MEDICARE, SELFPAY | LOC: WOUND 10:43 | PROVIDERS: ATTENDING PHYSICIAN Surgery; FAMILY PHYSICIAN Internal Medicine | DX: I87.313 Chronic venous hypertension (idiopathic) with ulcer of bilateral lower extremity (principal); L97.821 Non-pressure chronic ulcer of other part of left lower leg limited to breakdown of skin; R41.0 Disorientation, unspecified; I87.2 Venous insufficiency (chronic) (peripheral); E11.65 Type 2 diabetes mellitus with hyperglycemia; M17.31 Unilateral post-traumatic osteoarthritis, right knee; M17.11 Unilateral primary osteoarthritis, right knee; Z96.652 Presence of left artificial knee joint; Z79.4 Long term (current) use of insulin | CPT/HCPCS: 99212 ==

== ENCOUNTER → 2024-04-13 12:00 | Outpatient (REF) | payer BC, MEDICARE, SELFPAY ==
[2024-04-13 16:23] LABS: Urine Albumin 1+ (Neg - Trace); Urine Bilirubin 1+ (Negative); Urine Character Very Cloudy (Clear); Urine Color Brown; Urine Glucose Negative (Negative); Urine Ketone 1+ (Negative); Urine Leukocyte 2+ (Negative); Urine Nitrite Positive (Negative); Urine Occult Blood 4+ (Negative); Urine Urobilinogen Negative (Neg - 1+)
[2024-04-13 16:33] LABS: Urine Bacteria Many (Negative); Urine Red Blood Cell >100 /HPF (0-2); Urine Squamous Cell 0-2 /LPF (Few); Urine White Cell 30-40 /HPF (0-5)
== END ==
LOC: CLAB 12:00
PROVIDERS: ATTENDING PHYSICIAN Internal Medicine
DX: R31.0 Gross hematuria (principal)
CPT/HCPCS: 81003; 81015; 87086; 87088; 87186; 88112

== ENCOUNTER → 2024-04-13 13:47 | Outpatient (REF) | payer BC, MEDICARE, SELFPAY ==
[2024-04-13 15:12] LABS: % Basophils 0.4 % (0-2); % Eosinophils 0.7 % (0-6); % Immature Granulocytes 0.9 % (0-0.5); % Monocytes 8.2 % (1.7-9.3); % Neutrophils 71.8 % (42.2-75.2); Absolute Eosinophils 0.1 10^3/uL (0-0.7); Absolute Immature Granulocytes 0.1 10^3/uL (0-0.05); Absolute Lymphocytes 1.5 10^3/uL (1.2-3.4); Absolute Monocytes 0.7 10^3/uL (0.1-0.6); Absolute Neutrophils 6.2 10^3/uL (1.4-6.5); Hematocrit 36.7 % (39.0-52.0); Mean Corp Hgb Conc. 35.4 g/dL (33.0-37.0); Mean Corpuscular Hgb 32.5 pg (27.0-31.0); Mean Corpuscular Volume 91.8 fL (80.0-94.0); Mean Platelet Volume 9.2 fL (7.4-10.4); Nucleated Red Blood Cells % 0 % (-); Platelet Count 170 10^3/uL (130-400); Red Cell Dist. Width 13.6 % (11.5-14.5); White Blood Cell Count 8.6 10^3/uL (4.8-10.8)
[2024-04-13 15:48] LABS: Blood Urea Nitrogen 15 mg/dl (9-20); Calcium 9.8 mg/dl (8.4-10.2); Carbon Dioxide 29 mmol/L (22-30); Chloride 95 mmol/L (98-107); Glucose 165 mg/dl (70-99); Potassium 4.7 mmol/L (3.5-5.1); Sodium 132 mmol/L (135-145); eGFR > 60.00
== END ==
LOC: RAD 13:47
PROVIDERS: ATTENDING PHYSICIAN Internal Medicine
DX: R31.0 Gross hematuria (principal); M54.89 Other dorsalgia
CPT/HCPCS: 36415; 76770; 80048; 81003; 81015; 85025; 87086; 87088; 87186; 88112

== ENCOUNTER 2024-05-14 08:29 | Outpatient (RCR) | payer BC, MEDICARE, SELFPAY | END 2024-05-14 23:59 | disposition home or self-care (01) | LOC: RPT 08:29 | PROVIDERS: ATTENDING PHYSICIAN Internal Medicine Cardiovascular Disease; FAMILY PHYSICIAN Internal Medicine | DX: I89.0 Lymphedema, not elsewhere classified (principal); I87.2 Venous insufficiency (chronic) (peripheral); M97.12XD Periprosthetic fracture around internal prosthetic left knee joint, subsequent encounter; T84.01 Broken internal joint prosthesis; Z73.6 Limitation of activities due to disability; R20.2 Paresthesia of skin; Z96.652 Presence of left artificial knee joint | CPT/HCPCS: 97163; 97530 ==

== ENCOUNTER 2024-07-10 13:12 | Outpatient (RCR) | payer BC, MEDICARE, SELFPAY | END 2024-07-10 23:59 | disposition home or self-care (01) | LOC: RPT 13:12 | PROVIDERS: ATTENDING PHYSICIAN Internal Medicine Cardiovascular Disease; FAMILY PHYSICIAN Internal Medicine | DX: I89.0 Lymphedema, not elsewhere classified (principal); I87.2 Venous insufficiency (chronic) (peripheral); M97.12XD Periprosthetic fracture around internal prosthetic left knee joint, subsequent encounter; T84.01 Broken internal joint prosthesis; Z96.652 Presence of left artificial knee joint; Z73.6 Limitation of activities due to disability; R20.2 Paresthesia of skin | CPT/HCPCS: 97140 ==

== ENCOUNTER → 2024-08-03 13:19 | Outpatient (REF) | payer BC, MEDICARE, SELFPAY | LOC: RAD 13:19 | PROVIDERS: ATTENDING PHYSICIAN Internal Medicine; FAMILY PHYSICIAN Internal Medicine | DX: R60.0 Localized edema (principal); J40 Bronchitis, not specified as acute or chronic | CPT/HCPCS: 71046; 93970 ==

== ENCOUNTER 2024-08-25 10:56 | Outpatient (RCR) | payer BC, MEDICARE, SELFPAY | END 2024-08-25 23:59 | disposition home or self-care (01) | LOC: RPT 10:56 | PROVIDERS: ATTENDING PHYSICIAN Internal Medicine Cardiovascular Disease; FAMILY PHYSICIAN Internal Medicine | DX: M97.12XD Periprosthetic fracture around internal prosthetic left knee joint, subsequent encounter (principal); I89.0 Lymphedema, not elsewhere classified; I87.2 Venous insufficiency (chronic) (peripheral); Z73.6 Limitation of activities due to disability; Z96.652 Presence of left artificial knee joint; T84.01 Broken internal joint prosthesis; R20.2 Paresthesia of skin | CPT/HCPCS: 97140 ==

== ENCOUNTER 2024-09-29 13:56 | Inpatient (IN) | payer BC, MEDICARE, SELFPAY ==
[2024-09-29] VITALS (16 sets, daily range): BP systolic 96–131; BP diastolic 64–116; BMI 41.0
[2024-09-29] MEDS: CARDIZEM 25 MG IV ×2 (11:24→12:29)
[2024-09-29 11:28] LABS: % Basophils 0.4 % (0-2); % Immature Granulocytes 1.4 % (0-0.5); % Lymphocytes 26.2 % (20.5-51.1); % Monocytes 7.6 % (1.7-9.3); % Neutrophils 63.4 % (42.2-75.2); Absolute Eosinophils 0.1 10^3/uL (0-0.7); Absolute Immature Granulocytes 0.1 10^3/uL (0-0.05); Absolute Lymphocytes 2.5 10^3/uL (1.2-3.4); Absolute Monocytes 0.7 10^3/uL (0.1-0.6); Hematocrit 40.1 % (39.0-52.0); Hemoglobin 14.1 g/dL (13.0-18.0); Mean Corp Hgb Conc. 35.2 g/dL (33.0-37.0); Mean Corpuscular Hgb 32.4 pg (27.0-31.0); Mean Corpuscular Volume 92.2 fL (80.0-94.0); Mean Platelet Volume 9.4 fL (7.4-10.4); Nucleated Red Blood Cells % 0 % (-); Platelet Count 193 10^3/uL (130-400); Red Blood Cell Count 4.35 10^6/uL (4.70-6.10); Red Cell Dist. Width 13.7 % (11.5-14.5); White Blood Cell Count 9.5 10^3/uL (4.8-10.8)
[2024-09-29 11:43] LABS: ALT (SGPT) 19 U/L (0-50); AST (SGOT) 24 U/L (17-59); Albumin 4.5 g/dl (3.5-5.0); Alkaline Phosphatase 69 U/L (38-126); Blood Urea Nitrogen 20 mg/dl (9-20); Calcium 9.7 mg/dl (8.4-10.2); Carbon Dioxide 29 mmol/L (22-30); Chloride 102 mmol/L (98-107); Estimated Creatinine Clearance > 125 ml/min; Glucose 150 mg/dl (70-99); Potassium 3.9 mmol/L (3.5-5.1); Sodium 139 mmol/L (135-145); Total Bilirubin 0.7 mg/dl (0.2-1.3); Total Protein 6.7 g/dl (6.3-8.2); eGFR > 60.00
[2024-09-29 11:52] LABS: INR 1.03; PT 13.8 Sec (11.4-14.6)
[2024-09-29 11:53] LABS: APTT 33.4 Sec (23.4-35.0)
[2024-09-29] MEDS: CARDIZEM 125 IV ×2 (11:53→19:13)
[2024-09-29 11:55] LABS: NT-proBNP 3810 pg/ml; Troponin I < 0.012 ng/ml
--- NOTE | 2024-09-29 11:56 | ED.GENMED ---
History of Present Illness
General
Chief Complaint: Heart Rate Problem
Time Seen by Provider: 09/29/24 10:58
History of Present Illness
History of Present Illness:
59-year-old male presents to the emergency department for evaluation of exertional dyspnea and tachycardia that has been ongoing for the past several days. He reports increased fluid retention in the legs bilaterally for the past week,
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 He takes an additional 80 mg at nighttime. He reports good improvement of leg edema however his heart rate has been consistently
greater than 130 for the past 48 hours. He does report mild left-sided chest discomfort as well. No recent fevers or chills.
Past History
Past History
ED Past Medical History: HTN, IDDM and Other (head injury/TBI)
ED Past Surgical History: Orthopedic and Other (Right orbital plate for fx)
Social History
Tobacco: Non-smoker
Personal:
Living: with family
Employment: Employed
Review of Systems
Review of Systems
Allergies reviewed?: Yes
All Other Systems: ROS reviewed and negative except as documented in HPI and ROS
Phy Exam
Physical Exam
Physical Exam:
GEN: Well appearing, NAD, WDWN
HEENT: Oral mucosa moist, no scleral icterus, elevated JVP
Cardiac: Tachycardic, regular, no murmur
Lung: No respiratory distress, no tachypnea, lungs clear to auscultation bilaterally
MSK: No gross deformity or injuries chronic bilateral lower extremity edema, no significant pitting edema at this time
Skin: Good color, no pallor or jaundice, no rashes
Neuro: AO x3, moves all extremities freely
Psych: Calm, cooperative
Course
Orders/Labs/Results
Orders:
Orders
09/29/24 10:56
Electrocardiogram (*1) Urgent
Reason for Study: Chest Pain
EKG- Treatment ONCE
09/29/24 11:19
Complete Blood Count/With Diff Urgent
Comprehensive Metabolic Panel Urgent
NT-proBNP Urgent
PT/INR [Prothrombin Time] Urgent
PTT Urgent
Troponin I Urgent
09/29/24 11:20
Diltiazem HCl [Cardizem] 25 mg IV NOW STA
09/29/24 11:21
Diltiazem HCl [Cardizem] 25 mg .ROUTE .STK-MED ONE
09/29/24 11:45
Diltiazem 125 mg/125 ml Nss [Cardizem] 125 mg in 125 ml IV PER PROTOCOL
Initial dose in mg/hr, then titrate:: 5
Titrate to keep:: Heart rate 80-100 bpm
Titrate by mg/hr:: 5 mg/hr
Frequency of titrations (minutes):: 15
Maximum dose in mg/hr:: 15
09/29/24 12:16
Diltiazem HCl [Cardizem] 25 mg IV NOW STA
09/29/24 12:44
CR Chest Portable - 1 View Urgent
Comment:
Reason For Exam: SOB
Reason Study Needs to be Portable: Other
09/29/24 13:36
Admit/Transfer Patient As Directed
Co-Sign Provider:
Level of Care: Inpatient admission
Assign to:: IMU- Intermediate Care
Physician / Group: william aguayo
Diagnosis: new onset aflutter A.chron afib, cp ekg changes
Reason for Hospitalization: new onset aflutter A.chron afib, cp ekg changes
Expected length of stay greater than two midnights?: Yes
ELOS- Estimated Length of Stay in days: 5
I certify the patient meets the requirements for IP care: Yes
09/29/24 13:41
Code Status As Directed
Resuscitation Status: Full Code
09/29/24 13:45
PRN Pain Medication Management As Directed
May give lesser potent ordered pain med per pt: Yes
preference::
Protocol:: Medication orders for pain may be administered in a
manner that supports deferring to patient preference
when the pt is:
- Requesting an ordered lesser potent pain medication.
Least to most potent pain medications are defined
as: acetaminophen < NSAID < tramadol < opioids
(morphine, oxycodone, hydromorphone).
- Requesting a lesser dose of the same medication IF
ORDERED.
- Requesting a less intrusive route of administration
if both routes are prescribed by the provider (PO <
IV).
09/29/24 Dinner
Cholesterol Lowering
Cholesterol Lowering: Sodium, 2 Gram
1800 ritu/15 CHO Diabetic
09/29/24 15:13
Acetaminophen [Tylenol] 1,000 mg PO Q6H PRN
Alprazolam [Xanax] 0.5 mg PO BIDPRN PRN
Dextrose 50%-Water [Dextrose 50% Syringe] 12.5 grams IV [id number] PRN
Glucagon [GlucaGen] 1 mg IM PRN PRN
Naproxen [Naprosyn] 500 mg PO [id number] PRN
Oxycodone [Roxicodone] 15 mg PO Q6HPRN PRN
09/29/24 15:13
CARDIOLOGY CONSULT Routine
Consulting Provider: Paresh Villasenor
Was physician already notified: Yes
Reason for consult: New onset a flutter, acute on chronic CHF, chest pain EKG changes
Activity As Directed
Activity Level: As Tolerated
Bedside Glucose Monitoring As Directed
Frequency: AC&HS
Additional Instructions:: Change to q6h if pt on TPN, tube feeding or not eating
Intake/ Output As Directed
Frequency: Per unit guidelines
Vital Signs As Directed
Frequency: Per unit guidelines
Weight As Directed
Frequency: Daily
Pulse Ox/spot Check [RESP] Routine
Quantity: 1
DX Deep Vein Thrombosis Video Routine
09/29/24 16:30
Insulin Aspart [NOVOLOG vial] 20 units SC AC
09/29/24 17:00
EKG [Electrocardiogram (*1)] Urgent
Reason for Study: Chest Pain
Troponin I Q6H
09/29/24 18:00
Atorvastatin [Lipitor] 40 mg PO QPM
Duloxetine Delayed Release [Cymbalta Delayed Release] 60 mg PO QPM
09/29/24 20:00
Divalproex Delayed Rel. 12 Hr [Depakote (12 Hr Release)] 1,500 mg PO BID
Gabapentin [Neurontin] 300 mg PO BID
risperidone 4 mg PO BID
09/29/24 22:00
insulin degludec [Tresiba FlexTouch U-200] 40 unit SC HS
09/29/24 23:00
Troponin I Q6H
09/30/24 06:00
Echo 2D MMode Color/Doppler IN AM
Reason for Study: chf/ new aflutter
Cardiology Consult: Paresh Martinez
Cardiovascular Evaluation IN AM
Complete Blood Count/With Diff IN AM
Comprehensive Metabolic Panel IN AM
Glycohemoglobin (HgbA1c) IN AM
Magnesium IN AM
09/30/24 08:00
Duloxetine Delayed Release [Cymbalta Delayed Release] 30 mg PO DAILY
Furosemide [Lasix] 80 mg IV DAILY
10/01/24 06:00
Complete Blood Count/With Diff IN AM
Comprehensive Metabolic Panel IN AM
10/02/24 06:00
Complete Blood Count/With Diff IN AM
Comprehensive Metabolic Panel IN AM
10/03/24 06:00
Complete Blood Count/With Diff IN AM
Comprehensive Metabolic Panel IN AM
Abnormal Lab Results
09/29/24
11:19
RBC 4.35 L 10^6/uL
(4.70-6.10)
MCH 32.4 H pg
(27.0-31.0)
Abs Immat Gran (auto) 0.1 H 10^3/uL
(0-0.05)
Absolute Monos (auto) 0.7 H 10^3/uL
(0.1-0.6)
Immature Gran % 1.4 H %
(0-0.5)
Glucose 150 H mg/dl
(70-99)
09/29/24 11:19
09/29/24 11:19
Vital Signs
Initial and Last Documented VS:
Initial Vital Signs
Temp Pulse Resp BP Pulse Ox
97.6 F 144 20 117/78 98
09/29/24 10:54 09/29/24 10:54 09/29/24 10:54 09/29/24 10:54 09/29/24 10:54
Last Documented Vital Signs
Temp Pulse Resp BP Pulse Ox
97.6 F 131 25 120/67 97
09/29/24 10:54 09/29/24 15:00 09/29/24 15:00 09/29/24 15:00 09/29/24 15:25
MDM/Problems Addressed
MDM/Problems Addressed:
Patient found to be in a 2 1 atrial flutter on arrival to the ED, this likely provoked his hypervolemia and clinical presentation with acute CHF. Required multiple doses of bolus Cardizem and Cardizem infusion without complete rate control. Will
be admitted to the hospitalist service for further management with cardiology consultation
*Critical Care Note
Total Time (30-74mins, 75-104mins- exclusive of procedures): 35 min
comment:
Critical care time: 35 minutes
Critical care time was exclusive of: Separately billable procedures, treating other patients, and teaching time
Critical care was necessary to treat or prevent imminent or life-threatening deterioration of the following conditions: Rapid atrial flutter/CHF
Critical care time spent personally by me on the following activities:
[x] Review of old charts
[x] Obtaining history from patient or surrogate
[x] Ordering and review of the laboratory studies
[x] Ordering and review of radiographic studies
[x] Ordering and performing treatments and interventions
[x] Patient patient's response to treatment
[x] Development of treatment plan with patient or surrogate
Update Note
Update Note:
1135: Patient was given IV diltiazem bolus dose with modest improvement in heart rates from 145 to the 110 range, obvious flutter waves are seen at this point. Will start diltiazem drip. He is not a candidate for cardioversion at this time. Will
plan for admission on rate control for cardiology to evaluate the patient and determine a long-term treatment plan
ED Attending Note
-
Portions of this chart may have been created with voice recognition software.� Occasional wrong word or��sound alike� substitutions may have occurred due to the inherent limitations of voice recognition software.
Discharge Plan
Departure
Patient Disposition: Admit
Date of Disposition: 09/29/24
Time of Disposition: 12:45
Admit to: IVU
Presentation/result/management discussed w/ accepting MD/DO: Hospitalist
Discharge Problem:
Atrial flutter with rapid ventricular response
Interventions
Interventions:
*Risk Screen - Suicide Last Done: 09/29/24 10:54
*General Assessment Last Done: 09/29/24 10:54
*Neglect/Abuse Screening Last Done: 09/29/24 10:54
*ED- Fall Risk Assessment Last Done: 09/29/24 11:15
*ED COVID-19 Vaccine History Last Done: 09/29/24 11:15
*Nursing Disposition Last Done: 09/29/24 15:30
ED- Cardiac Assessment Last Done: 09/29/24 11:22
ED- Pulmonary Assessment Last Done: 09/29/24 11:22
Discharge Date and Time
Discharge Date/Time: 09/29/24 15:31
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
[2024-09-29] MEDS: LASIX 80 MG IV (15:39)
[2024-09-29] MEDS: HEPARIN 25000 UNITS/250 ML IV (16:14)
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
[2024-09-29] MEDS: LOPRESSOR 12.5 MG PO (17:20)
[2024-09-29] MEDS: NOVOLOG FLEXPEN 20 UNITS SC (17:22)
[2024-09-29] MEDS: LIPITOR 40 MG PO (17:24)
[2024-09-29] MEDS: CYMBALTA DELAYED RELEASE 60 MG PO (17:30)
[2024-09-29 17:32] LABS: Glucose - Point of Care 181 mg/dl (70-99)
[2024-09-29 18:03] LABS: Troponin I 0.014 ng/ml
[2024-09-29] MEDS: ROXICODONE 15 MG PO (19:16)
[2024-09-29] MEDS: NEURONTIN 300 MG PO (20:40)
[2024-09-29] MEDS: DEPAKOTE (12 HR RELEASE) 1500 MG PO (20:40)
[2024-09-29] MEDS: RISPERDAL 4 MG PO (20:40)
[2024-09-29] MEDS: XANAX 0.5 MG PO (20:43)
[2024-09-29 21:25] LABS: Glucose - Point of Care 96 mg/dl (70-99)
[2024-09-29 23:23] LABS: APTT 49.5 Sec (23.4-35.0)
[2024-09-29 23:37] LABS: Troponin I 0.017 ng/ml
[2024-09-30] VITALS (12 sets, daily range): BP systolic 80–154; BP diastolic 65–136; BMI 40.2
[2024-09-30] MEDS: LOPRESSOR 12.5 MG PO ×4 (01:10→23:24)
[2024-09-30] MEDS: CARDIZEM 125 IV ×2 (04:54→22:01)
[2024-09-30] MEDS: HEPARIN 25000 UNITS/250 ML IV (05:26)
[2024-09-30 05:47] LABS: APTT 70.1 Sec (23.4-35.0)
[2024-09-30 05:54] LABS: % Basophils 0.5 % (0-2); % Eosinophils 1.2 % (0-6); % Immature Granulocytes 1.3 % (0-0.5); % Lymphocytes 37.8 % (20.5-51.1); % Monocytes 8.3 % (1.7-9.3); % Neutrophils 50.9 % (42.2-75.2); Absolute Eosinophils 0.1 10^3/uL (0-0.7); Absolute Immature Granulocytes 0.1 10^3/uL (0-0.05); Absolute Lymphocytes 3.3 10^3/uL (1.2-3.4); Absolute Monocytes 0.7 10^3/uL (0.1-0.6); Absolute Neutrophils 4.4 10^3/uL (1.4-6.5); Hematocrit 38.5 % (39.0-52.0); Hemoglobin 13.6 g/dL (13.0-18.0); Mean Corp Hgb Conc. 35.3 g/dL (33.0-37.0); Mean Corpuscular Hgb 32.5 pg (27.0-31.0); Mean Corpuscular Volume 91.9 fL (80.0-94.0); Mean Platelet Volume 9.3 fL (7.4-10.4); Nucleated Red Blood Cells % 0 % (-); Platelet Count 163 10^3/uL (130-400); Red Blood Cell Count 4.19 10^6/uL (4.70-6.10); Red Cell Dist. Width 13.8 % (11.5-14.5); White Blood Cell Count 8.6 10^3/uL (4.8-10.8)
--- NOTE | 2024-09-30 06:00 | PTCARENOTE ---
Cared for pt overnight. Aaox3 but forgetful. Remains afib on monitor but switched between afib & ST. Bp's running soft but stable, pt asymptomatic. Heparin gtt & cardizem gtt running. NO other issues at this time. Will monitor.
[2024-09-30 06:11] LABS: Troponin I 0.015 ng/ml
[2024-09-30 06:24] LABS: ALT (SGPT) 16 U/L (0-50); AST (SGOT) 21 U/L (17-59); Albumin 3.8 g/dl (3.5-5.0); Alkaline Phosphatase 48 U/L (38-126); Blood Urea Nitrogen 19 mg/dl (9-20); Calcium 9.5 mg/dl (8.4-10.2); Carbon Dioxide 28 mmol/L (22-30); Chloride 105 mmol/L (98-107); Estimated Creatinine Clearance > 125 ml/min; Glucose 105 mg/dl (70-99); HDL Cholesterol 38 mg/dl; LDL Cholesterol, Calculated 54 mg/dl; Potassium 3.8 mmol/L (3.5-5.1); Sodium 139 mmol/L (135-145); Total Bilirubin 0.5 mg/dl (0.2-1.3); Total Cholesterol 116 mg/dl (50-199); Triglyceride 124 mg/dl (10-149); Very Low Density Lipoprotein 24 mg/dl (0-30); eGFR > 60.00
--- NOTE | 2024-09-30 07:41 | W.PN.HOSP.TC ---
Addendum entered and electronically signed by Concepción Costa MD 09/30/24 18:04:
I saw and evaluated the patient independently. I reviewed the resident�s note and agree with findings and plan as documented by Dr. Germain.
GENERAL: well developed, well nourished, obese male in no apparent distress
HEENT: NC/AT
HEART: irreg irreg
LUNGS : clear to auscultation bilaterally
ABDOM: soft, nontender, nondistended, + bowel sounds
EXT: no cyanosis, clubbing-- 3+ LE edema bilaterally
NEUROLOGIC: apparent TBI--otherwise grossly intact
New onset atrial flutter--apprec cards--cont cardizem drip/heparin drip (will need Eliquis pricing)--Echo with EF 20-25% (unclear if drop is due to rate aflutter)--MARCELINO with cardioversion planned- Also consideration to start SGLT2 inhibitors given
patient has been on Mounjaro--will defer to cards need for cath
acute on chronic heart failure (HFrEF)--Elevated proBNP to 3810--Continue to Eplerenone per cardiology--Continue IV Diuresis with IV Lasix BID while watching BMP--Follow-up Daily weight changes, I/Os
Chest pain--No complaints this a.m. patient denies chest pain or back pain-At admission patient reported left chest pain for last 1 week--Troponin levels come back negative-no need for further follow-up
Worsening bilateral lower extremity edema--likely due to CHF exacerbation- US neg for DVT--consider compression
Type 2 diabetes mellitus-- Hemoglobin A1c 5.4 since 11/2023- Blood sugar levels between 96- 105- Patient's home dose insulin decreased to half(long-acting and short acting)- Continue blood sugar monitoring- Hold -patient is on Mounjaro at outpatient
setting
Essential hypertension- BP on the lower side- Hold losartan with parameters for SBP<120
Anxiety - Continue Xanax as needed - Continue duloxetine- Continue risperidone
Traumatic brain injury- Continue divalproex
PAD/neuropathy- Continue gabapentin
DVT Proph-- Eliquis
CODE STATUS --- full code
Original Note:
Today's Communication/Plan
-
-Bilateral lower extremity Doppler US
-MARCELINO pending to be obtained
- Discontinued heparin and started on Eliquis
Assessment / Plan
Assessment / Plan
# New onset atrial flutter
-BP on the lower side
-Cardio on board
-Continue diltiazem drip and Lopressor at lower dose to control heart rate
-Heparin drip discontinued and patient started on Eliquis
-Last echo from 07/12/2023 with EF 50 to 55%
- MARCELINO planned by cardiology with the plan for cardioversion
- Also consideration to start SGLT2 inhibitors given patient has been on Mounjaro
# Possible acute on chronic heart failure
-Elevated proBNP to 3810
-Continue to Eplerenone per cardiology
-Continue IV Diuresis with IV Lasix BID while watching BMP
-Follow-up Daily weight changes, I/Os
#Chest pain
-No complaints this a.m. patient denies chest pain or back pain
-At admission patient reported left chest pain for last 1 week
-Troponin levels come back negative-no need for further follow-up
-EKG is not remarkable for a possible acute LA
# Worsening bilateral lower extremity
- Lower extremity Doppler ultrasound ordered:Mild subcutaneous edema in each calf, relatively symmetric. No DVT. findings are compared with lymphedema
- Gadiel wrap ordered
# Type 2 diabetes mellitus
- Hemoglobin A1c 5.4 since 724
- Blood sugar levels between 96- 105
- Patient's home dose insulin decreased to half(long-acting and short acting)
- Continue blood sugar monitoring
- Hold -patient is on Mounjaro at outpatient setting
# Essential hypertension
- BP on the lower side
- Hold losartan with parameters for SBP<120
#Anxiety
- Continue Xanax as needed
- Continue duloxetine
- Continue risperidone
# Traumatic brain injury
- Continue divalproex
#PAD /neuropathy
- Continue gabapentin
DVT Px: Eliquis
CODE STATUS : full code
Anticipated Discharge: 24 - 48 hours
Subjective/Interval History
-
Date of Service: September 30, 2024
The patient is feeling better regarding shortness of breath. And reports his swallowing improved since the admission. Denies chest pain or back pain or palpitations.
Objective Data
-
Labs:
Laboratory Results
09/29/24 09/30/24 09/30/24
23:00 05:27 11:59
WBC 8.6
Hgb 13.6
Hct 38.5 L
Plt Count 163
APTT 49.5 H 70.1 H Pending
Sodium 139
Potassium 3.8
Chloride 105
Carbon Dioxide 28
BUN 19
Creatinine 0.7
Glucose 105 H
Calcium 9.5
Total Bilirubin 0.5
AST 21
ALT 16
Alkaline Phosphatase 48
Vital Signs:
Vital Signs
Temp Pulse Resp BP Pulse Ox
97.6 F 107 16 93/71 93
09/30/24 03:20 09/30/24 06:00 09/30/24 06:00 09/30/24 06:00 09/30/24 02:00
I&O
09/29/24 09/30/24 10/01/24
06:59 06:59 06:59
Output Total 4200 / 4200
Balance -4200 / -4200
Review of Systems
-
History Source: Patient
EENT: Reports No Symptoms Reported
Respiratory: Reports No Symptoms
Abdomen/GI: Reports No Symptoms
Musculoskeletal: Reports Joint Pain (Right hip pain) and Edema
Skin: Reports Other (Healing ulcers on bilateral lower extremities)
Neuro: Reports No Symptoms
Physical Exam
-
General: Well Developed, Well Nourished, Appears Chronically Ill and Morbidly Obese
HEENT: Normocephalic and Atraumatic
Respiratory: Crackles
Cardiac: S1/S2 and Irregular Rhythm
GI: Soft, Nontender and Nondistended
Musculoskeletal: No Clubbing, No Cyanosis, Edema, Right Lower Extrem and Edema, Left Lower Extrem
Skin: Warm and IV Access / Catheter Site
Neuro: Awake, Alert, Oriented, AO x 3 and Nonfocal/Grossly Intact
Psych: Calm
[2024-09-30 07:51] LABS: Glucose - Point of Care 106 mg/dl (70-99)
[2024-09-30] MEDS: NOVOLOG FLEXPEN 20 UNITS SC (08:40)
[2024-09-30 09:08] LABS: Glycohemoglobin (HgbA1c) 5.4 % (4.0-5.6)
[2024-09-30] MEDS: INSPRA 50 MG PO (09:13)
[2024-09-30] MEDS: RISPERDAL 4 MG PO ×2 (09:13→19:41)
[2024-09-30] MEDS: CYMBALTA DELAYED RELEASE 30 MG PO (09:13)
[2024-09-30] MEDS: NEURONTIN 300 MG PO ×2 (09:13→19:41)
[2024-09-30] MEDS: DEPAKOTE (12 HR RELEASE) 1500 MG PO ×2 (09:13→19:40)
[2024-09-30] MEDS: LASIX 80 MG IV ×2 (09:14→16:49)
[2024-09-30] MEDS: ROXICODONE 15 MG PO ×3 (09:32→23:24)
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
[2024-09-30] MEDS: ELIQUIS 5 MG PO ×2 (13:00→22:01)
[2024-09-30 15:36] LABS: Glucose - Point of Care 82 mg/dl (70-99)
[2024-09-30] MEDS: CYMBALTA DELAYED RELEASE 60 MG PO (16:51)
[2024-09-30] MEDS: LIPITOR 40 MG PO (16:51)
[2024-09-30 17:29] LABS: Glucose - Point of Care 105 mg/dl (70-99)
[2024-09-30] MEDS: NOVOLOG FLEXPEN SC ×2 (17:59)
[2024-09-30] MEDS: LOPRESSOR PO (18:42)
--- NOTE | 2024-09-30 19:07 | PTCARENOTE ---
heparin drip stopped per order and eliquis given. cardizem drip at 15/mg/hr per protocol.lasix given as ordered and pt voiding large amounts yellow urine.
--- NOTE | 2024-09-30 19:21 | DOWNTIME ---
There was a [employer] Downtime on 09/30/2024 from 1230 to 09/30/2024 at 1550. Downtime documentation of patient's care, including medication administrations, has been reconciled in the electronic record per guidelines. Refer to the
patient's paper chart under the miscellaneous tab to see printed paper medication records and downtime forms.
--- NOTE | 2024-09-30 20:26 | PTCARENOTE ---
Caring for pt overnight. aaox3, forgetful, at bedside. 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 BPs running soft but stable. pt and aware of MARCELINO and possible cardioversion tomorrow. Took pills whole, no issues. Compression
sleeves will be put on in AM. No other issues, will monitor.
[2024-09-30 21:50] LABS: Glucose - Point of Care 116 mg/dl (70-99)
[2024-09-30] MEDS: XANAX 0.5 MG PO (22:01)
[2024-09-30] MEDS: LANTUS 0.2 UNITS SC (22:22)
[2024-10-01] VITALS (12 sets, daily range): BP systolic 97–120; BP diastolic 70–84; BMI 40.3
[2024-10-01] MEDS: LOPRESSOR 12.5 MG PO (04:51)
[2024-10-01] MEDS: CARDIZEM 125 IV (04:57)
[2024-10-01 05:04] LABS: % Basophils 0.5 % (0-2); % Eosinophils 1.4 % (0-6); % Immature Granulocytes 1.3 % (0-0.5); % Lymphocytes 30.8 % (20.5-51.1); % Monocytes 8.6 % (1.7-9.3); % Neutrophils 57.4 % (42.2-75.2); Absolute Eosinophils 0.1 10^3/uL (0-0.7); Absolute Immature Granulocytes 0.1 10^3/uL (0-0.05); Absolute Lymphocytes 2.5 10^3/uL (1.2-3.4); Absolute Monocytes 0.7 10^3/uL (0.1-0.6); Absolute Neutrophils 4.6 10^3/uL (1.4-6.5); Hematocrit 39.5 % (39.0-52.0); Hemoglobin 13.8 g/dL (13.0-18.0); Mean Corp Hgb Conc. 34.9 g/dL (33.0-37.0); Mean Corpuscular Hgb 32.1 pg (27.0-31.0); Mean Corpuscular Volume 91.9 fL (80.0-94.0); Mean Platelet Volume 9.3 fL (7.4-10.4); Nucleated Red Blood Cells % 0 % (-); Platelet Count 158 10^3/uL (130-400); Red Cell Dist. Width 13.9 % (11.5-14.5)
[2024-10-01 05:57] LABS: ALT (SGPT) 18 U/L (0-50); AST (SGOT) 22 U/L (17-59); Albumin 4.1 g/dl (3.5-5.0); Alkaline Phosphatase 51 U/L (38-126); Blood Urea Nitrogen 18 mg/dl (9-20); Calcium 9.6 mg/dl (8.4-10.2); Carbon Dioxide 27 mmol/L (22-30); Chloride 103 mmol/L (98-107); Estimated Creatinine Clearance > 125 ml/min; Glucose 119 mg/dl (70-99); Potassium 4.3 mmol/L (3.5-5.1); Sodium 136 mmol/L (135-145); Total Bilirubin 0.7 mg/dl (0.2-1.3); Total Protein 6.2 g/dl (6.3-8.2); eGFR > 60.00
--- NOTE | 2024-10-01 06:45 | W.PN.HOSP.TC ---
Today's Communication/Plan
-
-MARCELINO and cardioversion plan this am
-Continue diuresis
Assessment / Plan
Assessment / Plan
# New onset atrial flutter
-BP on the lower side
-Cardio on board
-Patient seen on diltiazem drip and Lopressor at lower dose to control heart rate this am-continue until HR heart under control
-MARCELINO planned by cardiology with the plan for cardioversion
-Continue Eliquis
-Last echo from 07/12/2023 with EF 50 to 55%
- Also consideration to start SGLT2 inhibitors by cardiology given patient has been on Mounjaro
#Chest pain
-No complaints this a.m. patient denies chest pain or back pain
-At admission patient reported left chest pain for last 1 week
-Troponin levels come back negative-no need for further follow-up
-EKG is not remarkable for a possible acute MA
# Possible acute on chronic heart failure
-Shortness of breath improved-denies any
-Elevated proBNP to 3810
-Continue to Eplerenone per cardiology
-Continue IV Diuresis with IV Lasix BID while watching BMP
-Follow-up Daily weight changes, I/Os
# Worsening bilateral lower extremity
-Improving
- Lower extremity Doppler ultrasound ordered:Mild subcutaneous edema in each calf, relatively symmetric. No DVT. findings are compared with lymphedema
- Gadiel wrap ordered
# Type 2 diabetes mellitus
- Hemoglobin A1c 5.4
- Blood sugar levels between 96- 105
- Patient's home dose insulin decreased to half(long-acting and short acting)-continue
- Continue blood sugar monitoring
- Hold Mounjaro
# Essential hypertension
- BP on the lower side
- Hold valsartan with parameters for SBP<120
#Anxiety/depression
- Continue Xanax as needed
- Continue duloxetine
- Continue risperidone
# Traumatic brain injury
- Continue divalproex
#PAD /neuropathy
- Continue gabapentin
DVT Px: Eliquis
CODE STATUS : full code
Anticipated Discharge: 24 - 48 hours
Subjective/Interval History
-
Date of Service: October 01, 2024
The patient reports improvement with SOB and leg swelling.Reports feeling palpitations, denies chest/back pain.
Objective Data
-
Labs:
Laboratory Results
09/30/24 10/01/24
11:59 04:52
WBC 8.0
Hgb 13.8
Hct 39.5
Plt Count 158
APTT Cancelled
Sodium 136
Potassium 4.3
Chloride 103
Carbon Dioxide 27
BUN 18
Creatinine 0.7
Glucose 119 H
Calcium 9.6
Total Bilirubin 0.7
AST 22
ALT 18
Alkaline Phosphatase 51
Vital Signs:
Vital Signs
Temp Pulse Resp BP Pulse Ox
97.6 F 137 16 97/77 91
10/01/24 03:23 10/01/24 06:00 10/01/24 06:00 10/01/24 06:00 10/01/24 06:00
I&O
09/29/24 09/30/24 10/01/24
06:59 06:59 06:59
Intake Total 1100 / 1100
Output Total 4200 / 4200 2150 / 2150
Balance -4200 / -4200 -1050 / -1050
Review of Systems
-
History Source: Patient
EENT: Reports No Symptoms Reported
Respiratory: Reports No Symptoms
Cardiac: Reports Palpitations
Abdomen/GI: Reports No Symptoms
Genitourinary: Reports No Symptoms
Musculoskeletal: Reports Joint Pain (left hip pain )
Skin: Reports No Symptoms
Neuro: Reports No Symptoms
Physical Exam
-
General: Well Developed, Well Nourished, Appears Chronically Ill and Morbidly Obese
HEENT: Normocephalic, Moist Mucous Membranes and Anicteric
Respiratory: Clear to Auscultation
Cardiac: S1/S2, Irregular Rhythm and Tachycardic
GI: Soft, Nontender and Nondistended
Musculoskeletal: No Clubbing, No Cyanosis, Edema, Right Lower Extrem and Edema, Left Lower Extrem
Skin: Warm and IV Access / Catheter Site
Neuro: Awake, Alert, Oriented and AO x 3
Psych: Anxious
[2024-10-01 08:39] LABS: Glucose - Point of Care 121 mg/dl (70-99)
[2024-10-01] MEDS: INSPRA 50 MG PO (09:06)
[2024-10-01] MEDS: ELIQUIS 5 MG PO ×2 (09:06→20:52)
[2024-10-01] MEDS: ROXICODONE 15 MG PO ×2 (09:06→18:48)
[2024-10-01] MEDS: NEURONTIN 300 MG PO ×2 (09:07→20:52)
[2024-10-01] MEDS: RISPERDAL 4 MG PO ×2 (09:07→20:51)
[2024-10-01] MEDS: CYMBALTA DELAYED RELEASE 30 MG PO (09:07)
[2024-10-01] MEDS: LASIX 80 MG IV ×2 (09:07→16:35)
[2024-10-01] MEDS: DEPAKOTE (12 HR RELEASE) 1500 MG PO ×2 (09:07→20:51)
[2024-10-01] MEDS: LOPRESSOR PO (12:00)
[2024-10-01 12:36] LABS: Glucose - Point of Care 106 mg/dl (70-99)
--- NOTE | 2024-10-01 12:54 | CM ---
Addendum entered by Sara Hooper 10/01/24 14:01:
eliquis cost of 35$ per [facility] and CM updated and coupon provided
Addendum entered by Sara Hooper 10/01/24 13:17:
VM left for [facility] regarding cost of eliquis, awaiting response.
Original Note:
Patient seen again today at IMU with physicians. Patient states that he lives with his in a 2 story home and that he does his chores and is able to get around independently. 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 Patient stated that he uses
the [facility] on [facility] but has no DME. Patient PCP is Dr. Graham. CM will check with spouse about discharge concerns and call to determine cost of Eliquis. CM will continue to follow for discharge planning needs.
Plan; home with no needs vs home with VN
--- NOTE | 2024-10-01 15:06 | PN.CDI ---
CDI
- -
CDI:
Physician Documentation Request
Admit Date: 09/29/24 13:56
Dear Doctor Jessa,
Please review the following and provide your response in the progress notes.
Clinical Indicators:
H+P, 09/29
#Chronic low back pain on chronic oral opiates
#DJD
#...-Continue oxycodone 15 mg p.o. every 6 hours as needed severe pain
#...- Continue Tylenol 1000 mg p.o. every 6 hours as needed mild pain
#...- Continue naproxen 500 mg p.o. every 12 hours as needed moderate pain
Based on the above and your clinical assessment, please provide further specificity as outlined below:
Opioid dependence, uncomplicated
Other (please specify)
Use of terms such as suspected, likely, concern for, or probable (associated with a specific diagnosis that is being evaluated, monitored, or treated as if it exists) are acceptable and can be coded in the inpatient setting, when documented at the
time of discharge.
Thank you,
Concepción Canela RN BSN CCDS
CDI Specialist
Please contact via tiger text
Please use your independent medical judgment in providing your response.
[2024-10-01 16:35] LABS: Glucose - Point of Care 131 mg/dl (70-99)
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
[2024-10-01] MEDS: LIPITOR 40 MG PO (17:48)
[2024-10-01] MEDS: CYMBALTA DELAYED RELEASE 60 MG PO (17:48)
--- NOTE | 2024-10-01 18:17 | PTCARENOTE ---
pt had jose/cardioversion earlier this shift. cardizem drip discontinued in labor relations representative. pt in sinus rythym on return to IMU and currently sinus tach on monitor. sat 95 on room air. pt requested to wear his own compression stockings from home rather
than evaristo wraps. compression stockings applied by pts .lasix given as ordered. voiding yellow urine in urinal.
[2024-10-01] MEDS: TOPROL XL 50 MG PO (20:53)
[2024-10-01] MEDS: TOPROL XL 25 MG PO (20:53)
[2024-10-01 22:28] LABS: Glucose - Point of Care 103 mg/dl (70-99)
[2024-10-01] MEDS: LANTUS 0.2 UNITS SC (23:04)
[2024-10-02] VITALS (18 sets, daily range): BP systolic 85–114; BP diastolic 59–83; PULSE 93; O2SAT 96; BMI 40.0
--- NOTE | 2024-10-02 00:08 | PTCARENOTE ---
Received pt from [facility]. Pt aaox2-3, forgetful at times. HS accucheck 103, 20 units lantus given. HR remains elevated at 115 even after increased dose of metoprolol, still in sinus rhythm. SaO2 88-92% on RA, pt requesting oxygen, 2LNC applied.
Call mott within reach, pt rings appropriately. VSS. Care ongoing.
[2024-10-02] MEDS: ROXICODONE 15 MG PO ×2 (00:48→07:58)
[2024-10-02 04:19] LABS: % Basophils 0.5 % (0-2); % Eosinophils 1.5 % (0-6); % Lymphocytes 27.9 % (20.5-51.1); % Monocytes 8.4 % (1.7-9.3); % Neutrophils 60.7 % (42.2-75.2); Absolute Eosinophils 0.1 10^3/uL (0-0.7); Absolute Immature Granulocytes 0.1 10^3/uL (0-0.05); Absolute Lymphocytes 2.4 10^3/uL (1.2-3.4); Absolute Monocytes 0.7 10^3/uL (0.1-0.6); Absolute Neutrophils 5.3 10^3/uL (1.4-6.5); Hematocrit 38.8 % (39.0-52.0); Hemoglobin 13.7 g/dL (13.0-18.0); Mean Corp Hgb Conc. 35.3 g/dL (33.0-37.0); Mean Corpuscular Hgb 32.2 pg (27.0-31.0); Mean Corpuscular Volume 91.1 fL (80.0-94.0); Nucleated Red Blood Cells % 0 % (-); Platelet Count 160 10^3/uL (130-400); Red Blood Cell Count 4.26 10^6/uL (4.70-6.10); Red Cell Dist. Width 14.1 % (11.5-14.5); White Blood Cell Count 8.7 10^3/uL (4.8-10.8)
[2024-10-02 04:40] LABS: ALT (SGPT) 17 U/L (0-50); AST (SGOT) 19 U/L (17-59); Alkaline Phosphatase 53 U/L (38-126); Blood Urea Nitrogen 21 mg/dl (9-20); Calcium 9.8 mg/dl (8.4-10.2); Carbon Dioxide 32 mmol/L (22-30); Chloride 100 mmol/L (98-107); Estimated Creatinine Clearance > 125 ml/min; Glucose 124 mg/dl (70-99); Potassium 4.5 mmol/L (3.5-5.1); Sodium 139 mmol/L (135-145); Total Bilirubin 0.9 mg/dl (0.2-1.3); Total Protein 6.4 g/dl (6.3-8.2); eGFR > 60.00
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
[2024-10-02] MEDS: NEURONTIN 300 MG PO ×2 (07:58→19:42)
[2024-10-02] MEDS: TOPROL XL 25 MG PO (07:58)
[2024-10-02] MEDS: DEPAKOTE (12 HR RELEASE) 1500 MG PO ×2 (07:58→19:43)
[2024-10-02] MEDS: INSPRA 50 MG PO (07:59)
[2024-10-02] MEDS: RISPERDAL 4 MG PO ×2 (07:59→19:43)
[2024-10-02] MEDS: TOPROL XL 50 MG PO ×2 (07:59→19:42)
[2024-10-02] MEDS: CYMBALTA DELAYED RELEASE 30 MG PO (07:59)
[2024-10-02] MEDS: ELIQUIS 5 MG PO ×2 (08:00→19:43)
[2024-10-02] MEDS: LASIX 80 MG IV (08:00)
[2024-10-02 08:03] LABS: Glucose - Point of Care 107 mg/dl (70-99)
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
[2024-10-02 11:34] LABS: Glucose - Point of Care 138 mg/dl (70-99)
[2024-10-02 12:25] LABS: Troponin I 0.019 ng/ml
[2024-10-02] MEDS: FARXIGA 10 MG PO (12:43)
--- NOTE | 2024-10-02 13:18 | PTCARENOTE ---
Assumed care of patient at beginning of this shift from previous RN. Patient OOB to chair x1 assist. When being seen by cardiology he c/o left sided chest pain. EKG obtained as well as troponin: result 0.019. Attempted to get patient up from chair
for standing scale weight that was requested by Alice Waldron. Patient had a very difficult time standing which required 3 assist. Patient stated he is able to stand from the bed but has difficulty getting up from the chair d/t needing a knee
replacement and prior L hip pain. Standing scale weight obtained with patient wearing his shoes: 137.5kg. This was sent to Alice Waldron via TT. Lance ordered and given.
Requested by Dr Reagan to ambulate patient in hallway to see if chest pain continues. Patient stated he did not want to walk at this time.
Level of care changed to IVU by hospitalist resident. Reviewed with her and Dr Valdez verifying patient for IVU d/t chest pain and previous afib rhythm. Patient currently NSR.
See worklst for full assessment and vital signs.
[2024-10-02 16:29] LABS: Glucose - Point of Care 135 mg/dl (70-99)
--- NOTE | 2024-10-02 16:39 | CM ---
Patient seen at bedside, IMM provided and patient stated he would review with his . Patient for possible discharge home tomorrow pending physician assessment. CM will continue to follow for discharge planning needs.
Plan; home with
[2024-10-02] MEDS: XANAX 0.5 MG PO (16:44)
[2024-10-02] MEDS: LIPITOR 40 MG PO (17:09)
[2024-10-02] MEDS: CYMBALTA DELAYED RELEASE 60 MG PO (17:09)
[2024-10-02 17:52] LABS: Troponin I 0.017 ng/ml
--- NOTE | 2024-10-02 18:09 | PTCARENOTE ---
BP 85/61; patient due for lasix. TT send to Alice Waldron who instructed to hold at this time.
[2024-10-02] MEDS: TYLENOL 1000 MG PO (18:28)
--- NOTE | 2024-10-02 19:00 | PTCARENOTE ---
Patient c/o left sided chest pain rated 8/10 in the same area as earlier today; also c/o sob. EKG done per protocol. He then stated CP is only when he takes a deep breath in and when he breathes normally he 'hardly has any pain.' Troponins neg x2 so
far, last one resulted 17:17. BP 97/77, HR 101 and SR. Alice Waldron notified via TT; instructed to give Tylenol. PRN dose given as per order.
Report given to Theresa in IVU; patient transferred to [facility] via bed.
[2024-10-02] MEDS: LANTUS 0.2 UNITS SC (22:52)
[2024-10-02 22:53] LABS: Glucose - Point of Care 123 mg/dl (70-99)
[2024-10-02 23:50] LABS: Troponin I 0.015 ng/ml
[2024-10-03] VITALS (7 sets, daily range): BP systolic 94–113; BP diastolic 62–71; BMI 40.0; BMI 39.4
--- NOTE | 2024-10-03 01:52 | PTCARENOTE ---
Received patient as a tsf at change of shift into room 2251. Patient was pulled over by nursing staff using a transferring sheet. Upon assessment pt AAOx3 and occasional forgetful/ poor historian d/t hx of TBI. Tele monitor applied pt Sinus Tach/NSR
w/ occasional PACs and PVCs. HR in the 90-100s at rest. Patient upon arrival to floor c/o SOB and left sided chest pain when taking in a deep breath. Patient described it as if its 'bruised'. No bruising on chest noted. Oxygen sat was 94% RA. This
RN applied 2L of O2 for comfort, and now sating 95-96%. Pt w/ good relief. Jana Ochoa COBBLER SOLE aware, and at bedside. No new orders obtained at this time. Upon reassessment after settling patient in room. He stated he was not in any discomfort and
declined any PRN meds. Call mott within reach.
[2024-10-03 04:39] LABS: % Basophils 0.5 % (0-2); % Eosinophils 1.1 % (0-6); % Immature Granulocytes 1.2 % (0-0.5); % Lymphocytes 27.7 % (20.5-51.1); % Monocytes 8.7 % (1.7-9.3); % Neutrophils 60.8 % (42.2-75.2); Absolute Eosinophils 0.1 10^3/uL (0-0.7); Absolute Immature Granulocytes 0.1 10^3/uL (0-0.05); Absolute Lymphocytes 2.3 10^3/uL (1.2-3.4); Absolute Monocytes 0.7 10^3/uL (0.1-0.6); Hematocrit 38.5 % (39.0-52.0); Hemoglobin 13.5 g/dL (13.0-18.0); Mean Corp Hgb Conc. 35.1 g/dL (33.0-37.0); Mean Corpuscular Hgb 32.5 pg (27.0-31.0); Mean Corpuscular Volume 92.5 fL (80.0-94.0); Mean Platelet Volume 9.5 fL (7.4-10.4); Nucleated Red Blood Cells % 0 % (-); Platelet Count 150 10^3/uL (130-400); Red Blood Cell Count 4.16 10^6/uL (4.70-6.10); Red Cell Dist. Width 14.3 % (11.5-14.5); White Blood Cell Count 8.2 10^3/uL (4.8-10.8)
[2024-10-03 05:07] LABS: ALT (SGPT) 17 U/L (0-50); AST (SGOT) 21 U/L (17-59); Alkaline Phosphatase 59 U/L (38-126); Blood Urea Nitrogen 23 mg/dl (9-20); Calcium 9.8 mg/dl (8.4-10.2); Carbon Dioxide 33 mmol/L (22-30); Chloride 101 mmol/L (98-107); Estimated Creatinine Clearance > 125 ml/min; Glucose 105 mg/dl (70-99); Potassium 4.2 mmol/L (3.5-5.1); Sodium 138 mmol/L (135-145); Total Protein 6.3 g/dl (6.3-8.2); eGFR > 60.00
[2024-10-03 05:20] LABS: Troponin I 0.022 ng/ml
[2024-10-03 07:37] LABS: Glucose - Point of Care 131 mg/dl (70-99)
[2024-10-03] MEDS: ROXICODONE 15 MG PO ×2 (08:09→22:11)
[2024-10-03] MEDS: INSPRA 25 MG PO (08:11)
[2024-10-03] MEDS: RISPERDAL 4 MG PO ×2 (08:11→20:03)
[2024-10-03] MEDS: NEURONTIN 300 MG PO ×2 (08:12→20:03)
[2024-10-03] MEDS: ZESTRIL 2.5 MG PO (08:12)
[2024-10-03] MEDS: FARXIGA 10 MG PO (08:12)
[2024-10-03] MEDS: ELIQUIS 5 MG PO ×2 (08:12→20:03)
[2024-10-03] MEDS: DEPAKOTE (12 HR RELEASE) 1500 MG PO ×2 (08:12→20:04)
[2024-10-03] MEDS: CYMBALTA DELAYED RELEASE 30 MG PO (08:12)
[2024-10-03] MEDS: TOPROL XL 50 MG PO ×2 (08:13→20:03)
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
[2024-10-03] MEDS: LASIX 40 MG IV (11:09)
[2024-10-03 12:49] LABS: Glucose - Point of Care 92 mg/dl (70-99)
[2024-10-03 13:10] LABS: Troponin I 0.016 ng/ml
--- NOTE | 2024-10-03 13:15 | W.PN.HOSP.TC ---
Today's Communication/Plan
-
Continue monitoring on telemetry
Monitor blood pressure
Amiodarone added to regimen by cardiology
Possible discharge tomorrow if no further tele events
Assessment / Plan
Assessment / Plan
New onset atrial flutter--s/p successful cardioversion to sinus rhythm on 10/01---underwent successful MARCELINO cardioversion on 10/01 morning. -Cardiology recommended for patient to be continued on Mounjaro. no SGLT2 inhibitor at this point --currently
rate controlled with Toprol 50 mg twice daily and on Eliquis 5 mg twice daily for anticoagulation. Patient was noted to having breakthrough atrial flutter/PAT on telemetry and cardiology has added amiodarone 200 mg 3 times daily. Repeat EKG in
the morning.
Hypotension -patient medication of eplerenone/Toprol were decreased in dose. Blood pressure improved at this stage. Continue monitoring.
acute on chronic heart failure (HFrEF)---Echo with EF 20-25% (unclear if drop is due to rate aflutter)--Elevated proBNP to 3810--Continue to Eplerenone per cardiology--continue further diuresis per cardiology.
Chest pain-remains chest pain-free at this point -Troponin levels come back negative-repeat episode which is around left lower rib cage, nonreproducible on palpation. Repeat EKG/troponin to be done and patient to be monitored overnight.
B/l LE edema --likely due to CHF exacerbation- US neg for DVT--consider compression
Type 2 diabetes mellitus-- Hemoglobin A1c 5.4 since 11/2023- Blood sugar levels between 96- 105- Patient's home dose insulin decreased to half(long-acting and short acting)- Continue blood sugar monitoring- Hold -patient is on Mounjaro at outpatient
setting
Essential hypertension- BP on the lower side- Hold losartan with parameters for SBP<120
Anxiety - Continue Xanax as needed - Continue duloxetine- Continue risperidone
Traumatic brain injury- Continue divalproex
PAD/neuropathy- Continue gabapentin
DVT Proph-- Eliquis
CODE STATUS --- full code
Anticipated Discharge: 24 - 48 hours
Subjective/Interval History
-
Date of Service: October 03, 2024
Have episode of left lower rib cage pain overnight, nothing after that
No palpitations/chest discomfort/shortness of breath
Denies of having any episodes of dizziness
Objective Data
-
Labs:
Laboratory Results
10/03/24
04:08
WBC 8.2
Hgb 13.5
Hct 38.5 L
Plt Count 150
Sodium 138
Potassium 4.2
Chloride 101
Carbon Dioxide 33 H
BUN 23 H
Creatinine 0.8
Glucose 105 H
Calcium 9.8
Total Bilirubin 1.0
AST 21
ALT 17
Alkaline Phosphatase 59
Vital Signs:
Vital Signs
Temp Pulse Resp BP Pulse Ox
97.8 F 84 20 113/69 98
10/03/24 11:05 10/03/24 11:09 10/03/24 11:05 10/03/24 11:09 10/03/24 07:35
I&O
10/02/24 10/03/24 10/04/24
06:59 06:59 06:59
Intake Total 960 / 960 360 / 360 600 / 600
Output Total 1375 / 1375 2875 / 2875 1200 / 1200
Balance -415 / -415 -2515 / -2515 -600 / -600
Review of Systems
-
Respiratory: Reports No Symptoms
Cardiac: Reports Chest Pain
Abdomen/GI: Reports No Symptoms
Physical Exam
-
General: No Apparent Distress and Comfortable
HEENT: Negative Oxygen
Respiratory: Clear to Auscultation
Cardiac: Regular Rhythm and S1/S2; Negative Murmur or Rub
GI: Soft
Musculoskeletal: No Edema
Neuro: Awake, Alert, Oriented, No Motor Deficits and Nonfocal/Grossly Intact
Psych: Calm
[2024-10-03] MEDS: PACERONE 200 MG PO ×2 (16:28→22:11)
[2024-10-03 17:50] LABS: Glucose - Point of Care 130 mg/dl (70-99)
[2024-10-03] MEDS: CYMBALTA DELAYED RELEASE 60 MG PO (18:14)
[2024-10-03] MEDS: LIPITOR 40 MG PO (18:14)
[2024-10-03] MEDS: LANTUS 0.2 UNITS SC (22:11)
[2024-10-03 22:14] LABS: Glucose - Point of Care 97 mg/dl (70-99)
[2024-10-04] VITALS (8 sets, daily range): BP systolic 90–103; BP diastolic 60–73; BMI 39.6
--- NOTE | 2024-10-04 01:05 | PTCARENOTE ---
Tele remains SR w/ occasional PVCS. HR in the 80's at rest. Pulse ox sating 94-95% Ra, and he denies any SOB. Patient has chronic left hip pain, and c/o 7/10 discomfort. PRN Roxicodone 15mg administered at 22:11. POC ongoing, call mott in reach.
[2024-10-04 07:39] LABS: Glucose - Point of Care 108 mg/dl (70-99)
[2024-10-04] MEDS: ROXICODONE 15 MG PO (07:57)
[2024-10-04] MEDS: INSPRA 25 MG PO (08:02)
[2024-10-04] MEDS: CYMBALTA DELAYED RELEASE 30 MG PO (08:03)
[2024-10-04] MEDS: FARXIGA 10 MG PO (08:03)
[2024-10-04] MEDS: NEURONTIN 300 MG PO (08:03)
[2024-10-04] MEDS: ELIQUIS 5 MG PO (08:04)
[2024-10-04] MEDS: RISPERDAL 4 MG PO (08:04)
[2024-10-04] MEDS: DEPAKOTE (12 HR RELEASE) 1500 MG PO (08:05)
[2024-10-04] MEDS: PACERONE 200 MG PO (08:06)
[2024-10-04] MEDS: TOPROL XL 50 MG PO (08:49)
[2024-10-04] MEDS: ZESTRIL 2.5 MG PO (08:49)
--- NOTE | 2024-10-04 08:59 | PTCARENOTE ---
Pt noted to have a run of SVT. Pt sitting at bedside and states that he is asymptomatic. Will monitor.
[2024-10-04 09:49] LABS: Blood Urea Nitrogen 25 mg/dl (9-20); Calcium 9.7 mg/dl (8.4-10.2); Carbon Dioxide 31 mmol/L (22-30); Chloride 100 mmol/L (98-107); Estimated Creatinine Clearance > 125 ml/min; Glucose 120 mg/dl (70-99); Potassium 4.5 mmol/L (3.5-5.1); Sodium 137 mmol/L (135-145); eGFR > 60.00
[2024-10-04] MEDS: LASIX 60 MG IV (10:53)
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
[2024-10-04 11:47] LABS: Glucose - Point of Care 91 mg/dl (70-99)
--- NOTE | 2024-10-04 15:41 | W.PN.HOSP.TC ---
Addendum entered and electronically signed by Dago Valdez MD 10/04/24 15:43:
Add onto diagnosis list ;
Opiate dependence
Original Note:
Today's Communication/Plan
-
d/c home
Assessment / Plan
Assessment / Plan
New onset atrial flutter--s/p successful cardioversion to sinus rhythm on 10/01---underwent successful MARCELINO cardioversion on 10/01 morning. -Cardiology recommended for patient to be continued on Mounjaro. no SGLT2 inhibitor at this point --currently
rate controlled with Toprol 50 mg twice daily and on Eliquis 5 mg twice daily for anticoagulation. Patient was noted to having breakthrough atrial flutter/PAT on telemetry and cardiology has added amiodarone 200 mg 3 times daily. Repeat EKG
remains in NSR
Hypotension -patient medication of eplerenone/Toprol were decreased in dose. Blood pressure improved at this stage. Continue monitoring.
acute on chronic heart failure (HFrEF)---Echo with EF 20-25% (unclear if drop is due to rate aflutter)--Elevated proBNP to 3810--Continue to Eplerenone per cardiology--continue further diuresis per cardiology.
Chest pain-remains chest pain-free at this point -Troponin levels come back negative-repeat episode which is around left lower rib cage, nonreproducible on palpation. Repeat EKG/troponin to be done and patient to be monitored overnight.
B/l LE edema --likely due to CHF exacerbation- US neg for DVT--consider compression
Type 2 diabetes mellitus-- Hemoglobin A1c 5.4 since 11/2023- Blood sugar levels between 96- 105- Patient's home dose insulin decreased to half(long-acting and short acting)- Continue blood sugar monitoring- Hold -patient is on Mounjaro at outpatient
setting
Essential hypertension- BP on the lower side- Hold losartan with parameters for SBP<120
Anxiety - Continue Xanax as needed - Continue duloxetine- Continue risperidone
Traumatic brain injury- Continue divalproex
PAD/neuropathy- Continue gabapentin
DVT Proph-- Eliquis
CODE STATUS --- full code
More than 30 minutes spent in discharge including
Final examination of the patient
Summarizing hospital stay
Instructions for continuing care to all relevant caregivers
Preparation of discharge records, prescriptions, and referral forms
Total time spent (in minutes): 39 mins
Anticipated Discharge: Today
Subjective/Interval History
-
Date of Service: October 04, 2024
resting comfortably in bed
Notable episodes of chest pain overnight
no telemetry events
Objective Data
-
Labs:
Laboratory Results
10/04/24
09:09
Sodium 137
Potassium 4.5
Chloride 100
Carbon Dioxide 31 H
BUN 25 H
Creatinine 0.8
Glucose 120 H
Calcium 9.7
Vital Signs:
Vital Signs
Temp Pulse Resp BP Pulse Ox
97.3 F 81 20 91/64 98
10/04/24 11:48 10/04/24 12:00 10/04/24 11:48 10/04/24 11:47 10/04/24 11:48
I&O
10/03/24 10/04/24 10/05/24
06:59 06:59 06:59
Intake Total 360 / 360 840 / 840 360 / 360
Output Total 2875 / 2875 1600 / 1600 200 / 200
Balance -2515 / -2515 -760 / -760 160 / 160
Review of Systems
-
Respiratory: Reports No Symptoms
Cardiac: Reports No Symptoms
Abdomen/GI: Reports No Symptoms
Physical Exam
-
General: No Apparent Distress and Comfortable
HEENT: Negative Oxygen
Respiratory: Clear to Auscultation
Cardiac: Regular Rhythm and S1/S2; Negative Murmur or Rub
GI: Soft
Musculoskeletal: No Edema
Neuro: Awake, Alert, Oriented, No Motor Deficits and Nonfocal/Grossly Intact
Psych: Calm
--- NOTE | 2024-10-04 16:06 | W.DCSUMMARY ---
Discharge Summary
Discharge Data
Date of Admission: 09/29/24
Date of Discharge: 10/04/24
-
Pending Results: No
Hospital Course
Discharging Physician : Dr Dago Valdez
Disposition : Home
Primary care physician : Dr. Arias Graham
Principal Discharge diagnosis :
Paroxysmal atrial fibrillation with rapid ventricular rate
Acute on chronic systolic congestive heart failure
Episode of chest pain
Chronic Discharge diagnosis :
Type 2 diabetes mellitus
Essential hypertension
Anxiety
History of traumatic brain injury
Peripheral arterial disease
History of peripheral neuropathy
Hospital Course :
Patient is 59-year-old male with above-mentioned past medical history came to ER patient was noted to having fast heart rate and found to be in new A-fib in ER. Patient was also felt to be having heart failure exacerbation. Patient was started on
IV diuretics and cardiology was involved in care. Patient had echocardiogram with ejection fraction showing 20 to 25% which is with decline. Patient was started on maximal GDMT with Hypotension being limiting factor. At discharge patient is
planned to follow-up with cardiology in office for further follow-up of new systolic dysfunction.
Patient had some episode of left lower rib cage chest pain which felt to be pleuritic or musculoskeletal in nature. Serial troponin and EKG checks were negative for any true ACS.
Patient was started on Cardizem drip for atrial flutter although did not have significant rate control. Patient underwent successful cardioversion after which patient was put on Toprol-XL. Patient had some breakthrough questionable atrial
tachyarrhythmia and cardiology initiated patient on amiodarone as well. Patient was on heparin drip based on elevated HARMEET-Vasc2 score this was transition to Eliquis at discharge.
Important imaging findings :
None
Procedure findings :
None
Discharge Plan
-
Patient Disposition: Home (Routine Discharge)
Discharge Diagnosis/Procedures: Afib, Systolic HF
Condition: Fair
Diet: 2 Gram Sodium
Activity: As tolerated
Driving Restrictions: As prior to admission
Bathing Restrictions: OK to Shower
Specialty Instructions: Weigh Daily- Call MD for wt gain/loss 3 lbs overnight/5 lbs in 1 week
Instructions: *[facility] Heart Failure Instructions
Referrals:
Arias Graham MD [Family Provider, Internal Medicine] - in one week
Irene Angel CRNP [Specified Professional Personl, Cardiology] - 10/13/24 9:00 am
Referral Note: You have a outpatient cardiac follow-up appointment at the [facility] office. Please call with questions
Prescriptions:
New
furosemide 40 mg Tablet
60 mg PO BID AT 0800,1600 30 Days Qty: 90 2RF
Eliquis 5 mg Tablet
5 mg PO BID Qty: 60 2RF
dapagliflozin propanediol 10 mg Tablet
10 mg PO DAILY Qty: 30 2RF
amiodarone 200 mg Tablet
200 mg PO BID Qty: 60 2RF
metoprolol succinate 50 mg Tablet Extended Release 24 Hr
50 mg PO BID Qty: 60 2RF
lisinopril 2.5 mg Tablet
2.5 mg PO DAILY Qty: 30 2RF
Continued
atorvastatin 40 MG tablet
40 mg PO QPM
risperidone 4 MG tablet
4 mg PO BID
metformin 1,000 MG tablet
1,000 mg PO BID
montelukast [Singulair] 10 mg Tablet
10 mg PO QPM
duloxetine 30 MG capsule,delayed release(DR/EC)
30 mg PO DAILY
gabapentin 300 MG capsule
300 mg PO BID
divalproex 500 mg Tablet,Delayed Release (Dr/Ec)
1,500 mg PO BID
oxycodone 15 mg Tablet
15 mg PO Q6HPRN PRN (Reason: severe pain)
alprazolam [Xanax] 0.5 mg Tablet
0.5 mg PO BIDPRN PRN (Reason: anxiety)
acetaminophen [Acetaminophen Extra Strength] 500 mg Tablet
1,000 mg PO Q6H PRN (Reason: mild pain)
duloxetine 60 mg capsule,delayed release(DR/EC)
60 mg PO QPM
Changed
insulin lispro 100 unit/mL Insulin Pen
10 unit SC AC Qty: 0 0RF
eplerenone 25 mg Tablet
25 mg PO DAILY Qty: 0 0RF
insulin degludec [Tresiba FlexTouch U-200] 200 unit/mL (3 mL) Insulin Pen
20 unit SC HS Qty: 0 0RF
Discontinued
valsartan 80 MG tablet
80 mg PO DAILY
naproxen 500 MG tablet
500 mg PO [id number] PRN (Reason: moderate pain)
furosemide [Lasix] 80 mg Tablet
80 mg PO DAILY@1600
Mounjaro 7.5 mg/0.5 mL pen injector
7.5 mg SC QWEEK
furosemide 80 mg tablet
120 mg PO DAILY
metoprolol succinate 50 mg tablet extended release 24 hr
50 mg PO DAILY
Discharge Orders:
Discharge Patient (As Directed); Ordered 10/04/24
Ordered By: Dago Valdez
Discharge Date and Time
Discharge Date/Time: 10/04/24 14:32
Print Language: YAKUT
== END 2024-10-04 14:32 | disposition home or self-care (01) | DRG 308 ==
LOC: IVU 13:56
PROVIDERS: Clinical Nurse Specialist Family Health; Internal Medicine; Internal Medicine Cardiovascular Disease; Physician Assistant; Student in an Organized Health Care Education/Training Program; ADMITTING PHYSICIAN Internal Medicine; ATTENDING PHYSICIAN Hospitalist; CONSULT PHYSICIAN Internal Medicine Cardiovascular Disease; EMERGENCY PHYSICIAN Emergency Medicine; FAMILY PHYSICIAN Internal Medicine
PROC: 5A2204Z Restoration of Cardiac Rhythm, Single (ICD-10-PCS; 2024-10-01)
PROC: B24BZZ4 Ultrasonography of Heart with Aorta, Transesophageal (ICD-10-PCS; 2024-10-01)
DX: I48.0 Paroxysmal atrial fibrillation (principal); I50.23 Acute on chronic systolic (congestive) heart failure; F03.A4 Unspecified dementia, mild, with anxiety; F03.A3 Unspecified dementia, mild, with mood disturbance; Z68.41 Body mass index [BMI] 40.0-44.9, adult; F11.20 Opioid dependence, uncomplicated; I48.92 Unspecified atrial flutter; I11.0 Hypertensive heart disease with heart failure; E11.40 Type 2 diabetes mellitus with diabetic neuropathy, unspecified; F32.A Depression, unspecified; Z87.820 Personal history of traumatic brain injury; I70.201 Unspecified atherosclerosis of native arteries of extremities, right leg; Z79.84 Long term (current) use of oral hypoglycemic drugs; Z79.4 Long term (current) use of insulin; E78.00 Pure hypercholesterolemia, unspecified; G43.909 Migraine, unspecified, not intractable, without status migrainosus; G89.29 Other chronic pain; M19.90 Unspecified osteoarthritis, unspecified site; G47.33 Obstructive sleep apnea (adult) (pediatric); Z91.199 Patient's noncompliance with other medical treatment and regimen due to unspecified reason; E66.813 Obesity, class 3; Z96.652 Presence of left artificial knee joint; Z79.85 Long-term (current) use of injectable non-insulin antidiabetic drugs; Z79.899 Other long term (current) drug therapy; I89.0 Lymphedema, not elsewhere classified
CPT/HCPCS: 71045; 80048; 80053; 80061; 82962; 83036; 83735; 83880; 84484; 85025; 85610; 85730; 92960; 93005; 93306; 93312; 93320; 93325; 93970; 96365; 96366; 97163; 99291; Q9950

== ENCOUNTER → 2024-10-20 09:11 | Outpatient (REF) | payer BC, MEDICARE, SELFPAY | LOC: PET 09:11 | PROVIDERS: ATTENDING PHYSICIAN Internal Medicine Cardiovascular Disease | DX: E66.01 Morbid (severe) obesity due to excess calories (principal); I50.9 Heart failure, unspecified; I50.21 Acute systolic (congestive) heart failure; I48.92 Unspecified atrial flutter | CPT/HCPCS: 78431; A9555; J2785 ==

== ENCOUNTER 2024-10-26 13:28 | Emergency (ER) | payer BC, MEDICARE, SELFPAY ==
[2024-10-26] VITALS (23 sets, daily range): BP systolic 69–137; BP diastolic 47–87; PULSE 93–102; BMI 39.6
[2024-10-26 13:40] LABS: Glucose - Point of Care 82 mg/dl (70-99)
[2024-10-26 13:59] LABS: % Basophils 0.4 % (0-2); % Eosinophils 1.1 % (0-6); % Immature Granulocytes 1.3 % (0-0.5); % Lymphocytes 44.2 % (20.5-51.1); % Monocytes 8.9 % (1.7-9.3); % Neutrophils 44.1 % (42.2-75.2); Absolute Eosinophils 0.1 10^3/uL (0-0.7); Absolute Immature Granulocytes 0.1 10^3/uL (0-0.05); Absolute Monocytes 0.8 10^3/uL (0.1-0.6); Hematocrit 36.9 % (39.0-52.0); Hemoglobin 13.4 g/dL (13.0-18.0); Mean Corp Hgb Conc. 36.3 g/dL (33.0-37.0); Mean Corpuscular Hgb 32.6 pg (27.0-31.0); Mean Corpuscular Volume 89.8 fL (80.0-94.0); Mean Platelet Volume 9.2 fL (7.4-10.4); Nucleated Red Blood Cells % 0 % (-); Platelet Count 159 10^3/uL (130-400); Red Blood Cell Count 4.11 10^6/uL (4.70-6.10); Red Cell Dist. Width 16.2 % (11.5-14.5)
[2024-10-26 15:03] LABS: Glucose - Point of Care 82 mg/dl (70-99)
[2024-10-26 15:13] LABS: Troponin I < 0.012 ng/ml
[2024-10-26 15:16] LABS: AST (SGOT) 29 U/L (17-59); Albumin 4.1 g/dl (3.5-5.0); Alkaline Phosphatase 65 U/L (38-126); Blood Urea Nitrogen 16 mg/dl (9-20); Calcium 9.4 mg/dl (8.4-10.2); Carbon Dioxide 26 mmol/L (22-30); Chloride 98 mmol/L (98-107); Estimated Creatinine Clearance > 125 ml/min; Glucose 82 mg/dl (70-99); Potassium 3.2 mmol/L (3.5-5.1); Sodium 136 mmol/L (135-145); Total Bilirubin 1.1 mg/dl (0.2-1.3); Total Protein 6.2 g/dl (6.3-8.2); eGFR > 60.00
[2024-10-26] MEDS: KCL 20 MEQ PO (15:37)
[2024-10-26 16:01] LABS: ALT (SGPT) 32 U/L (0-50)
[2024-10-26 16:27] LABS: Urine Albumin Negative (Neg - Trace); Urine Bilirubin Negative (Negative); Urine Character Clear (Clear); Urine Color Amber; Urine Glucose Negative (Negative); Urine Ketone Negative (Negative); Urine Leukocyte 1+ (Negative); Urine Nitrite Negative (Negative); Urine Occult Blood Negative (Negative); Urine Urobilinogen Negative (Neg - 1+)
[2024-10-26] MEDS: NSS 250 IV (16:45)
[2024-10-26 17:00] LABS: Depakane 147.3 ug/ml (50.0-120.0)
--- NOTE | 2024-10-26 17:50 | ED.GENMED ---
History of Present Illness
General
Chief Complaint: Blood Pressure Problem
Source: patient, spouse and ambulance crew
Exam Limitations: none
Time Seen by Provider: 10/26/24 13:41
Nursing documentation reviewed up to this point in time: agreed with
History of Present Illness
History of Present Illness:
Patient presents to ED for evaluation secondary to hypotension associated with dizziness and near syncope, while he was being seen at his primary care physician office this afternoon. Secondary to significant hypotension during transport, patient
was started on epi infusion by paramedics, on the way to the hospital. Patient states that over the past 2 days, he has experienced intermittent dizziness, especially when standing up. This morning, he experienced similar symptoms. When he
checked his blood sugar it was noted to be low. Patient proceeded to have some crackers and felt a little bit better. As he was walking towards the car, to go to his doctor's office, he felt extreme dizziness and felt as though he may pass out.
However, he was able to get inside the vehicle and present at his primary care physician's office. It was while he was sitting in exam room, when he stood up, he once again felt extremely dizzy and nearly fell forward. He was noted to be
hypotensive and 911 was called. At the time evaluation ED, patient is alert and awake, and complaining of mild dizziness. Denies chest pain or shortness of breath. Denies headache. Denies nausea or vomiting. However, patient does report
posterior headache 2 days ago, which now has resolved. Patient takes Eliquis chronically. Of note, patient states that he forgot to take his evening medications yesterday, and made a decision to take evening medications along with his a.m.
medications all at once this morning.
Past History
Past History
ED Past Medical History: HTN, IDDM and Other (head injury/TBI)
ED Past Surgical History: Orthopedic and Other (Right orbital plate for fx)
Social History
Tobacco: Non-smoker
Personal:
Living: with family
Employment: Employed
Review of Systems
Review of Systems
Allergies reviewed?: Yes
All Other Systems: ROS reviewed and negative except as documented in HPI and ROS
Constitutional: Reports no symptoms; Denies fever
Respiratory: Reports no symptoms; Denies trouble breathing
Cardiac: Reports no symptoms; Denies chest pain or palpitations
: Reports no symptoms
Musculoskeletal: Reports no symptoms
Skin: Reports no symptoms
Neurological: Reports dizzy and headache; Denies weakness
Phy Exam
Physical Exam
Physical Exam:
Physical Exam
General: no apparent distress, not acutely ill. afebrile
Head: nc/at. eomi
Neck: supple. normal range of motion. no jvd.
Heart: s1/s2 regular rate and rhythm. no murmur
Lungs: no acute respiratory distress. clear bilaterally
Abdomen: normal bowel sounds. not tender.
Neuro: alert and oriented x 3. no focal neurological deficits. normal speech
Skin: no rash
Psychiatric: well kept. interactive and cooperative
Extremities: LE b/l, nonpitting edema. no calf tenderness.
Sepsis
Sepsis Screening
Sepsis Assessment: Sepsis Ruled Out
Sepsis Screen
Sepsis Screen: Sepsis Ruled Out
Date: 10/26/24
Time: 20:29
Course
Orders/Labs/Results
Orders:
Orders
10/26/24 13:31
Electrocardiogram (*1) Urgent
Reason for Study: Vertigo / Dizzy
EKG- Treatment ONCE
10/26/24 13:45
Complete Blood Count/With Diff Urgent
Comprehensive Metabolic Panel Urgent
10/26/24 14:10
Add On- LAB Urgent
Tests Added?: depakote level, magnesium, ProBNP
CT Head W/o Iv Contrast Urgent
Comment:
Reason For Exam: dizziness w headache
10/26/24 14:37
Troponin I Urgent
10/26/24 15:03
Depakane Urgent
10/26/24 15:24
Potassium Chloride [KCl] 20 meq PO NOW STA
10/26/24 15:39
UA Reflex to Culture [Urinalysis Reflex To Culture] Urgent
Date Specimen was Collected: 10/26/24
Time Specimen was Collected: 15:38
Urine Microscopic Reflex Cult Urgent
Urine Culture Urgent
JIM Source: U
Specimen Description:
Date Specimen was Collected: 10/26/24
Time Specimen was Collected: 15:38
10/26/24 16:44
0.9% Sodium Chloride 250 ml [Nss] 250 ml IV BOLUS
10/26/24 16:53
0.9% Sodium Chloride 250 ml [Nss] 250 ml IV BOLUS
Abnormal Lab Results
10/26/24 10/26/24 10/26/24
13:45 15:03 15:39
RBC 4.11 L 10^6/uL
(4.70-6.10)
Hct 36.9 L %
(39.0-52.0)
MCH 32.6 H pg
(27.0-31.0)
RDW 16.2 H %
(11.5-14.5)
Abs Immat Gran (auto) 0.1 H 10^3/uL
(0-0.05)
Absolute Lymphs (auto) 4.0 H 10^3/uL
(1.2-3.4)
Absolute Monos (auto) 0.8 H 10^3/uL
(0.1-0.6)
Immature Gran % 1.3 H %
(0-0.5)
Potassium 3.2 L mmol/L
(3.5-5.1)
Total Protein 6.2 L g/dl
(6.3-8.2)
Leukocyte Esterase Rfl 1+ A
(Negative)
Valproic Acid 147.3 H* ug/ml
(50.0-120.0)
10/26/24 13:45
10/26/24 13:45
Vital Signs
Initial and Last Documented VS:
Initial Vital Signs
Pulse Resp BP Pulse Ox
95 18 137/63 98
10/26/24 13:32 10/26/24 13:32 10/26/24 13:32 10/26/24 13:32
Last Documented Vital Signs
Pulse Resp BP Pulse Ox
93 13 99/72 98
10/26/24 17:45 10/26/24 17:45 10/26/24 17:45 10/26/24 17:52
MDM/Problems Addressed
MDM/Problems Addressed:
Subjective remained stable during observation in ED, off epinephrine infusion. Was able to have lunch and fluids orally. Orthostatic vital signs checked afterwards, which revealed mild orthostatic hypotension, without patient expressing any
symptoms. Decision made to administer 2050 mL of IV fluids and reassess. Patient otherwise remains asymptomatic. In addition, Depakote level discussed with patient and family, which may also be contributing to patient's episodes of dizziness
recently. As such, recommend withholding next 3 doses of Depakote along with speaking with PCP about repeating Depakote level over the next 1 to 2 weeks. In light of doubling up on medications today, along with associated hypotension, patient will
be advised to withhold evening dose of metoprolol or any other antihypertensives, with plan to resume tomorrow as scheduled.
*Pulse Oximetry
SaO2: 98
Oxygen Mode of Delivery: Room air
Patient hypoxic: no
*Critical Care Note
Total Time (30-74mins, 75-104mins- exclusive of procedures): Not Applicable
ED Attending Note
-
Portions of this chart may have been created with voice recognition software.� Occasional wrong word or��sound alike� substitutions may have occurred due to the inherent limitations of voice recognition software.
Discharge Plan
Departure
Patient Disposition: Home (Routine Discharge)
Date of Disposition: 06/23/25
Time of Disposition: 17:50
Patient with high blood pressure during this ER visit?: No
Discharge Problem:
Hypotension, Dizziness
Instructions: Orthostatic hypotension, Dizziness in adults - ED discharge instructions
Prescriptions:
No Action
atorvastatin 40 MG tablet
40 mg PO QPM
risperidone 4 MG tablet
4 mg PO BID
metformin 1,000 MG tablet
1,000 mg PO BID
montelukast [Singulair] 10 mg Tablet
10 mg PO QPM
duloxetine 30 MG capsule,delayed release(DR/EC)
30 mg PO DAILY
gabapentin 300 MG capsule
300 mg PO BID
divalproex 500 mg Tablet,Delayed Release (Dr/Ec)
1,500 mg PO BID
oxycodone 15 mg Tablet
15 mg PO Q6HPRN PRN (Reason: severe pain)
alprazolam [Xanax] 0.5 mg Tablet
0.5 mg PO BIDPRN PRN (Reason: anxiety)
acetaminophen [Acetaminophen Extra Strength] 500 mg Tablet
1,000 mg PO Q6H PRN (Reason: mild pain)
duloxetine 60 mg capsule,delayed release(DR/EC)
60 mg PO QPM
furosemide 40 mg Tablet
60 mg PO BID AT 0800,1600 30 Days Qty: 90 2RF
Eliquis 5 mg Tablet
5 mg PO BID Qty: 60 2RF
dapagliflozin propanediol 10 mg Tablet
10 mg PO DAILY Qty: 30 2RF
amiodarone 200 mg Tablet
200 mg PO BID Qty: 60 2RF
metoprolol succinate 50 mg Tablet Extended Release 24 Hr
50 mg PO BID Qty: 60 2RF
lisinopril 2.5 mg Tablet
2.5 mg PO DAILY Qty: 30 2RF
insulin lispro 100 unit/mL Insulin Pen
10 unit SC AC Qty: 0 0RF
eplerenone 25 mg Tablet
25 mg PO DAILY Qty: 0 0RF
insulin degludec [Tresiba FlexTouch U-200] 200 unit/mL (3 mL) Insulin Pen
20 unit SC HS Qty: 0 0RF
Referrals:
Arias Graham MD [Family Provider, Internal Medicine]
Activity Restrictions/Additional Instructions:
As discussed, please follow-up with your primary care physician reevaluation, including repeat blood work within 1 to 2 weeks, as your Depakote level was noted to be high today.
Interventions
Interventions:
*Risk Screen - Suicide Last Done: 10/26/24 13:32
*General Assessment Last Done: 10/26/24 13:32
*Neglect/Abuse Screening Last Done: 10/26/24 13:32
*ED- Fall Risk Assessment Last Done: 10/26/24 18:12
*ED COVID-19 Vaccine History Last Done: 10/26/24 18:12
*Nursing Disposition Last Done: 10/26/24 18:12
ED- Cardiac Assessment Last Done: 10/26/24 13:48
ED- Neurological Assessment Last Done: 10/26/24 13:48
ED- Pulmonary Assessment Last Done: 10/26/24 13:48
Discharge Date and Time
Discharge Date/Time: 10/26/24 18:13
Print Language: CZECH
[2024-10-26 18:04] LABS: Urine Red Blood Cell 0-2 /HPF (0-2); Urine Squamous Cell 0-2 /LPF (Few)
== END 2024-10-26 18:13 | disposition home or self-care (01) ==
LOC: EMR 13:28
PROVIDERS: EMERGENCY PHYSICIAN Emergency Medicine; FAMILY PHYSICIAN Internal Medicine
DX: I95.9 Hypotension, unspecified (principal); R42 Dizziness and giddiness; I10 Essential (primary) hypertension; E11.9 Type 2 diabetes mellitus without complications; Z79.4 Long term (current) use of insulin
CPT/HCPCS: 96360; 99284; 70450; 80053; 80164; 81003; 81015; 82962; 84484; 85025; 87077; 87086; 87186; 93005

== ENCOUNTER → 2024-12-18 12:50 | Outpatient (REF) | payer BC, MEDICARE, SELFPAY ==
--- NOTE | 2024-12-18 14:17 | CARDSERVLU ---
Echocardiogram with Lumason completed after protocol screening completed. Allergies verified.
Patent IV site: __RH___
IV site flushed with 0.9% NaCl pre and post administration.
Diluted bolus method utilized to enhance visualization of ventricular trammell.
Total volume given: __2__ mL
Patient tolerated all procedures well without complications.
== END ==
LOC: RCS 12:50
PROVIDERS: ATTENDING PHYSICIAN Internal Medicine Cardiovascular Disease; FAMILY PHYSICIAN Internal Medicine
DX: I50.32 Chronic diastolic (congestive) heart failure (principal)
CPT/HCPCS: 93306; Q9950

== ENCOUNTER → 2025-02-04 15:34 | Outpatient (REF) | payer BC, MEDICARE, SELFPAY ==
[2025-02-04 16:17] LABS: Hematocrit 31.3 % (39.0-52.0); Hemoglobin 11.2 g/dL (13.0-18.0); Mean Corp Hgb Conc. 35.8 g/dL (33.0-37.0); Mean Corpuscular Volume 93.4 fL (80.0-94.0); Nucleated Red Blood Cells % 0 % (-); Platelet Count 117 10^3/uL (130-400); Red Cell Dist. Width 13.8 % (11.5-14.5)
[2025-02-04 16:57] LABS: ALT (SGPT) 24 U/L (0-50); AST (SGOT) 26 U/L (17-59); Albumin 4.3 g/dl (3.5-5.0); Alkaline Phosphatase 63 U/L (38-126); Blood Urea Nitrogen 17 mg/dl (9-20); Calcium 9.7 mg/dl (8.4-10.2); Carbon Dioxide 29 mmol/L (22-30); Chloride 96 mmol/L (98-107); Glucose 117 mg/dl (70-99); Potassium 4.3 mmol/L (3.5-5.1); Sodium 133 mmol/L (135-145); Total Protein 6.7 g/dl (6.3-8.2); eGFR > 60.00
[2025-02-05 10:37] LABS: Glycohemoglobin (HgbA1c) 5.0 % (4.0-5.6)
== END ==
LOC: REG 15:34
PROVIDERS: ATTENDING PHYSICIAN Orthopaedic Surgery; FAMILY PHYSICIAN Internal Medicine; OTHER PHYSICIAN Internal Medicine Cardiovascular Disease
DX: I10 Essential (primary) hypertension (principal); E11.9 Type 2 diabetes mellitus without complications; Z01.818 Encounter for other preprocedural examination
CPT/HCPCS: 36415; 80053; 83036; 83880; 85025; 93005

== ENCOUNTER → 2025-03-19 11:11 | Outpatient (REF) | payer BC, MEDICARE, SELFPAY ==
[2025-03-19 18:17] LABS: Urine Character Slightly Cloudy (Clear)
[2025-03-19 18:59] LABS: Urine Red Blood Cell 80-90 /HPF (0-2); Urine Squamous Cell 21-25 /LPF (Few)
[2025-03-19 19:00] LABS: Urine White Cell 26-30 /HPF (0-5)
== END ==
LOC: CLAB 11:11
PROVIDERS: ATTENDING PHYSICIAN Internal Medicine
DX: N39.0 Urinary tract infection, site not specified (principal)
CPT/HCPCS: 81003; 81015; 87077; 87086